=== PATIENT | male | born 1935 | race Caucasian/White ===

== ENCOUNTER 2019-08-01 17:14 | Inpatient (IN) ==
[2019-08-01 18:02] LABS: Basophils % 0.5 % (0.0-0.8); Eosinophils # 0.2 10*3/uL (0.0-0.87); Eosinophils % 3.7 % (0.00-10.9); Hemoglobin 14.6 GM/DL (14.0-18.0); Immature Granulocytes % 0.7 %; Immature Granulocytes Absolute 0.04 #; Lymphocytes # 1.6 10*3/uL (1.4-4.0); Lymphocytes % 26.9 % (21.2-54.2); Mean Corpuscular HGB Conc 32.4 GM/DL (32-36); Mean Corpuscular Volume 97.6 FL (87-102); Mean Platelet Volume 8.9 FL (9.6-12.0); Monocytes % 9.2 % (1.7-12.7); Platelet Count 205 T/CUMM (130-400); Red Blood Count 4.61 MC/CUMM (3.8-5.5); Red Cell Distribution Width 13.6 % (9.3-17.3); White Blood Count 5.9 T/CUMM (4-12)
[2019-08-01] MEDS ORDERED: ASPIRIN 325 MG TABLET PO STA (18:06)
[2019-08-01] MEDS ORDERED: SODIUM CHLORIDE 0.9% 1,000 ML IV STA (18:06)
[2019-08-01 18:11] LABS: PT Patient Result 10.8 SECS (9.6-12.2)
[2019-08-01 18:21] LABS: Alanine Aminotransferase 39 U/L (16-61); Albumin 4.1 G/DL (3.4-5.0); Alkaline Phosphatase 71 U/L (45-117); Aspartate Amino Transferase 27 U/L (0-37); Bilirubin,Total < 0.39 MG/DL (0.2-1.0); Blood Urea Nitrogen 24 MG/DL (7-18); Calcium 9.2 MG/DL (8.5-10.1); Estimated Glom Filtration Rate 77 ML/MIN; Glucose 131 MG/DL (74-106); Osmolality,Calculated 284.4 MOS/KG (273-304)
[2019-08-01] MEDS ORDERED: LORazepam 2 MG/1 ML VIAL ONE (18:24)
[2019-08-01] MEDS ORDERED: LORazepam 2 MG/1 ML VIAL IV STA (18:26)
[2019-08-01] MEDS ORDERED: ONDANSETRON 4 MG/2 ML VIAL IV ONE (18:26)
[2019-08-01] MEDS ORDERED: ONDANSETRON 4 MG/2 ML VIAL ONE (18:26)
[2019-08-01] MEDS ORDERED: FOSPHENYTOIN 1,000 MG.PE in SODIUM CHLORIDE 0.9% 250 ML IV STA (18:26)
[2019-08-01] MEDS ORDERED: FOSPHENYTOIN 500 MG.PE/10 ML VIAL ONE (18:35)
[2019-08-01] MEDS: HEPARIN DRIP 25,000 UNITS/500 ML PREMIX IV SCH (18:47)
[2019-08-01 20:28] LABS: Apearance,Urine CLEAR (Clear); Bacteria,Urine Occasional /HPF (Few); Bilirubin,Urine Negative (Negative); Blood, Urine Negative (Negative); Glucose,Urine (UA) Negative (Negative); Hyaline Casts,Urine 1 /LPF (0-3); Ketones,Urine Negative (Negative); Mucus,Urine Moderate /LPF (Occasional); Nitrite,Urine Negative (Negative); Protein,Urine Negative; RBC,Urine 4 /HPF (0-4); Urine Color Yellow (Yellow); Urine Specific Gravity 1.023 (1.001-1.035); WBC,Urine 1 /HPF (0-6)
[2019-08-01] MEDS ORDERED: GLUCAGON 1 MG VIAL IM PRN (22:17)
[2019-08-01] MEDS ORDERED: DEXTROSE 50% 25 GM/50 ML VIAL IV PRN (22:17)
[2019-08-01] MEDS ORDERED: ACETAMINOPHEN 325 MG TABLET PO PRN (22:17)
[2019-08-01] MEDS ORDERED: MORPHINE 4 MG/1 ML VIAL IV PRN (22:17)
[2019-08-01] MEDS ORDERED: NITROGLYCERIN SL 0.4 MG TABLET SL PRN (22:17)
[2019-08-01] MEDS ORDERED: LORazepam 2 MG/1 ML VIAL IV PRN (22:17)
[2019-08-01] MEDS ORDERED: ONDANSETRON 4 MG/2 ML VIAL IV PRN (22:17)
[2019-08-01 22:53] LABS: Barbiturates Screen,Urine Negative (Negative); Benzodiazepines Screen,Urine Negative (Negative); Cannabinoid Screen,Urine Negative (Negative); Opiate Screen,Urine Negative (Negative); Phencyclidine Screen,Urine Negative (Negative)
[2019-08-01] MEDS ORDERED: ALBUTEROL/IPRATROPIUM 3 ML NEB RESP TX PRN (23:00)
[2019-08-01] MEDS: TAMSULOSIN 0.4 MG CAPSULE PO SCH (23:58)
[2019-08-01] MEDS: FINASTERIDE 5 MG TABLET PO SCH (23:59)
[2019-08-01] MEDS: SIMVASTATIN 40 MG TABLET PO SCH (23:59)
[2019-08-02] MEDS: INSULIN LISPRO 100 UNIT/ML SUBCUT SCH ×4 (00:22→18:31)
[2019-08-02] MEDS: SODIUM CHLORIDE 0.9% 1,000 ML IV SCH ×2 (00:25→18:32)
[2019-08-02 05:47] LABS: Basophils % 0.7 % (0.0-0.8); Eosinophils # 0.2 10*3/uL (0.0-0.87); Eosinophils % 4.1 % (0.00-10.9); Hematocrit 41.4 VOL% (42.0-52.0); Hemoglobin 13.5 GM/DL (14.0-18.0); Immature Granulocytes % 0.5 %; Immature Granulocytes Absolute 0.03 #; Lymphocytes # 1.6 10*3/uL (1.4-4.0); Lymphocytes % 28.1 % (21.2-54.2); Mean Corpuscular HGB Conc 32.6 GM/DL (32-36); Mean Corpuscular Volume 97.4 FL (87-102); Monocytes % 9.7 % (1.7-12.7); Neutrophils % 56.9 % (38.7-73.9); Platelet Count 184 T/CUMM (130-400); Red Blood Count 4.25 MC/CUMM (3.8-5.5); Red Cell Distribution Width 13.7 % (9.3-17.3); White Blood Count 5.6 T/CUMM (4-12)
[2019-08-02 06:18] LABS: Calcium 8.3 MG/DL (8.5-10.1); Osmolality,Calculated 279.5 MOS/KG (273-304); Risk Ratio 3.58; Thyroid Stimulating Hormone 1.76 uIU/ml (0.358-3.74); VLDL CHOLESTEROL 22.4 MG/DL
[2019-08-02] MEDS ORDERED: Umeclidinium-Vilanterol [Anoro Ellipta] 1 PUFF INH SCH (09:00)
[2019-08-02] MEDS: METOPROLOL SUCCINATE XL 25 MG TABLET PO SCH (09:02)
[2019-08-02] MEDS: GLIMEPIRIDE 4 MG TABLET PO SCH (09:03)
[2019-08-02] MEDS: PANTOPRAZOLE 40 MG TABLET PO SCH (09:03)
[2019-08-02] MEDS: ASPIRIN EC 81 MG TABLET PO SCH (09:03)
[2019-08-02] MEDS ORDERED: LORazepam 2 MG/1 ML VIAL IV ONE (11:25)
[2019-08-02] MEDS: PHENYTOIN ER 100 MG CAPSULE PO SCH ×2 (15:52→22:05)
[2019-08-02] MEDS ORDERED: HEPARIN 5,000 UNIT/1 ML VIAL IV ONE (20:58)
[2019-08-02] MEDS: SIMVASTATIN 40 MG TABLET PO SCH (22:05)
[2019-08-02] MEDS: TAMSULOSIN 0.4 MG CAPSULE PO SCH (22:05)
[2019-08-02] MEDS: FINASTERIDE 5 MG TABLET PO SCH (22:06)
[2019-08-02] MEDS: HEPARIN DRIP 25,000 UNITS/500 ML PREMIX IV SCH (23:25)
[2019-08-03] MEDS: INSULIN LISPRO 100 UNIT/ML SUBCUT SCH ×2 (01:24→07:16)
[2019-08-03 05:09] LABS: Basophils % 0.4 % (0.0-0.8); Eosinophils # 0.2 10*3/uL (0.0-0.87); Eosinophils % 3.1 % (0.00-10.9); Hematocrit 42.6 VOL% (42.0-52.0); Hemoglobin 13.7 GM/DL (14.0-18.0); Immature Granulocytes % 0.9 %; Immature Granulocytes Absolute 0.05 #; Lymphocytes # 1.7 10*3/uL (1.4-4.0); Lymphocytes % 31.7 % (21.2-54.2); Mean Corpuscular HGB Conc 32.2 GM/DL (32-36); Mean Corpuscular Volume 97.3 FL (87-102); Mean Platelet Volume 9.1 FL (9.6-12.0); Neutrophils % 53.9 % (38.7-73.9); Platelet Count 197 T/CUMM (130-400); Red Blood Count 4.38 MC/CUMM (3.8-5.5); Red Cell Distribution Width 13.6 % (9.3-17.3); White Blood Count 5.4 T/CUMM (4-12)
[2019-08-03 05:25] LABS: Calcium 8.9 MG/DL (8.5-10.1); Osmolality,Calculated 276.7 MOS/KG (273-304)
[2019-08-03] MEDS: HEPARIN DRIP 25,000 UNITS/500 ML PREMIX IV SCH (06:21)
[2019-08-03] MEDS: METOPROLOL SUCCINATE XL 25 MG TABLET PO SCH (08:14)
[2019-08-03] MEDS: PHENYTOIN ER 100 MG CAPSULE PO SCH (08:14)
[2019-08-03] MEDS: GLIMEPIRIDE 4 MG TABLET PO SCH (08:15)
[2019-08-03] MEDS: PANTOPRAZOLE 40 MG TABLET PO SCH (08:15)
[2019-08-03] MEDS: ASPIRIN EC 81 MG TABLET PO SCH (08:16)
[2019-08-03 08:19] VITALS: BP 152/73
[2019-08-03] MEDS ORDERED: ALBUTEROL/IPRATROPIUM 3 ML NEB RESP TX ONE (09:22)
[2019-08-03] MEDS ORDERED: BUDESONIDE 0.5 MG/2 ML NEB RESP TX ONE (09:22)
[2019-08-03] MEDS ORDERED: APIXABAN 2.5 MG TABLET PO SCH (21:00)
[2019-08-03] MEDS ORDERED: DOCUSATE SODIUM 100 MG CAPSULE PO SCH (21:00)
[2019-08-03] MEDS ORDERED: CITALOPRAM 20 MG TABLET PO SCH (21:00)
[2019-08-04] MEDS ORDERED: MONTELUKAST 10 MG TABLET PO SCH (09:00)
[2019-08-04] MEDS ORDERED: CETIRIZINE 10 MG TABLET PO SCH (09:00)
== END 2019-08-03 10:38 | disposition home health service (06) | DRG 101 ==
LOC: N.ED 17:14 → N.EDINP 19:49 → N.TELES 20:07
PROVIDERS: ADMIT Family Medicine; ATTEND Family Medicine

== ENCOUNTER 2020-08-23 20:11 | Observation (INO) ==
[2020-08-23] MEDS ORDERED: ASPIRIN 325 MG TABLET PO STA ×2 (20:24→20:46)
[2020-08-23] MEDS ORDERED: FUROSEMIDE 40 MG/4 ML VIAL IV STA (20:46)
[2020-08-23] MEDS ORDERED: MORPHINE 4 MG/1 ML VIAL IV STA (20:46)
[2020-08-23] MEDS ORDERED: ALBUTEROL/IPRATROPIUM 3 ML NEB RESP TX STA (20:46)
[2020-08-23] MEDS ORDERED: ONDANSETRON 4 MG/2 ML VIAL IV STA (20:46)
[2020-08-23] MEDS ORDERED: NITROGLYCERIN 2% OINT 1 INCH/GM PACK TOP STA (20:46)
[2020-08-23 20:56] LABS: Basophils % 0.2 % (0.0-0.8); Hematocrit 42.4 VOL% (42.0-52.0); Hemoglobin 14.2 GM/DL (14.0-18.0); Immature Granulocytes % 1.4 %; Immature Granulocytes Absolute 0.12 #; Lymphocytes # 0.5 10*3/uL (1.4-4.0); Lymphocytes % 5.6 % (21.2-54.2); Mean Corpuscular HGB Conc 33.5 GM/DL (32-36); Mean Corpuscular Volume 97.5 FL (87-102); Mean Platelet Volume 9.1 FL (9.6-12.0); Monocytes % 3.7 % (1.7-12.7); Neutrophils % 89.1 % (38.7-73.9); Platelet Count 192 T/CUMM (130-400); Red Blood Count 4.35 MC/CUMM (3.8-5.5); Red Cell Distribution Width 13.4 % (9.3-17.3); White Blood Count 8.4 T/CUMM (4-12)
[2020-08-23 21:00] LABS: Bilirubin,Urine Negative (Negative); Blood, Urine Negative (Negative); Glucose,Urine (UA) >=500 mg/dL (Negative); Ketones,Urine 5 mg/dL (Negative); Nitrite,Urine Negative (Negative); Protein,Urine 30 MG/DL; RBC,Urine 2 /HPF (0-4); Urine Appearance CLEAR (Clear); Urine Color Straw (Yellow); Urine Specific Gravity 1.022 (1.001-1.035); Urine Urobilinogen < 2.0 EU/DL (0.2-1.0); WBC,Urine <1 /HPF (0-6)
[2020-08-23 21:03] LABS: PT Patient Result 11.1 SECS (9.8-11.9)
[2020-08-23 21:29] LABS: Albumin 3.9 G/DL (3.4-5.0); Bilirubin,Total 0.5 MG/DL (0.2-1.0); Calcium 9.1 MG/DL (8.5-10.1); Osmolality,Calculated 283.4 MOS/KG (273-304); Potassium 4.4 MMOL/L (3.5-5.1); Total Protein 8.1 G/DL (6.4-8.3)
[2020-08-23] MEDS ORDERED: INSULIN REGULAR 100 UNIT/ML SUBCUT STA (21:50)
[2020-08-23] MEDS ORDERED: LABETALOL 20 MG/4 ML SYRINGE IV PRN (22:28)
[2020-08-23] MEDS ORDERED: GLUCAGON 1 MG VIAL IM PRN ×2 (22:29)
[2020-08-23] MEDS ORDERED: ALBUTEROL 2.5 MG/3 ML NEB RESP TX PRN (22:29)
[2020-08-23] MEDS ORDERED: PROMETHAZINE 25 MG TABLET PO PRN (22:29)
[2020-08-23] MEDS ORDERED: CALCIUM CARBONATE CHEW 500 MG TABLET PO PRN (22:29)
[2020-08-23] MEDS ORDERED: BISACODYL 5 MG TABLET PO PRN (22:29)
[2020-08-23] MEDS ORDERED: ACETAMINOPHEN 325 MG TABLET PO PRN (22:29)
[2020-08-23] MEDS ORDERED: SIMETHICONE CHEW 125 MG TABLET PO PRN (22:29)
[2020-08-23] MEDS ORDERED: DEXTROSE 50% 25 GM/50 ML VIAL IV PRN ×2 (22:29)
[2020-08-23] MEDS ORDERED: ONDANSETRON 4 MG/2 ML VIAL IV PRN (22:29)
[2020-08-23] MEDS ORDERED: MORPHINE 4 MG/1 ML VIAL IV PRN (22:29)
[2020-08-24] MEDS: ALBUTEROL/IPRATROPIUM 3 ML NEB RESP TX SCH ×2 (00:35→08:04)
[2020-08-24] MEDS ORDERED: ALBUTEROL/IPRATROPIUM 3 ML NEB RESP TX PRN (03:00)
[2020-08-24 05:57] LABS: Basophils % 0.2 % (0.0-0.8); Eosinophils % 0.2 % (0.00-10.9); Hematocrit 40.9 VOL% (42.0-52.0); Hemoglobin 13.6 GM/DL (14.0-18.0); Immature Granulocytes % 0.9 %; Immature Granulocytes Absolute 0.08 #; Lymphocytes # 1.5 10*3/uL (1.4-4.0); Lymphocytes % 17.2 % (21.2-54.2); Mean Corpuscular HGB Conc 33.3 GM/DL (32-36); Mean Corpuscular Volume 96.9 FL (87-102); Mean Platelet Volume 9.3 FL (9.6-12.0); Monocytes % 8.4 % (1.7-12.7); Neutrophils % 73.1 % (38.7-73.9); Platelet Count 202 T/CUMM (130-400); Red Blood Count 4.22 MC/CUMM (3.8-5.5); Red Cell Distribution Width 13.5 % (9.3-17.3); White Blood Count 8.4 T/CUMM (4-12)
[2020-08-24] MEDS ORDERED: FUROSEMIDE 40 MG/4 ML VIAL IV SCH (06:00)
[2020-08-24 06:15] LABS: Potassium 3.8 MMOL/L (3.5-5.1)
[2020-08-24] MEDS ORDERED: FINASTERIDE 5 MG TABLET PO SCH (09:00)
[2020-08-24] MEDS ORDERED: ASPIRIN EC 81 MG TABLET PO SCH (09:00)
[2020-08-24] MEDS ORDERED: PANTOPRAZOLE 40 MG TABLET PO SCH (09:00)
[2020-08-24] MEDS ORDERED: MONTELUKAST 10 MG TABLET PO SCH (09:00)
[2020-08-24] MEDS ORDERED: CETIRIZINE 10 MG TABLET PO SCH (09:00)
[2020-08-24] MEDS ORDERED: NON-FORMULARY MEDICATION (Omeprazole 20 MG capsule,delayed release(DR/EC)) PO SCH (09:00)
[2020-08-24] MEDS ORDERED: METOPROLOL SUCCINATE XL 25 MG TABLET PO SCH (09:00)
[2020-08-24] MEDS ORDERED: APIXABAN 2.5 MG TABLET PO SCH (09:00)
[2020-08-24] MEDS: INSULIN LISPRO 100 UNIT/ML SUBCUT SCH ×2 (09:09→12:44)
[2020-08-24] MEDS: lisinopriL 5 MG TABLET PO SCH ×2 (09:10→09:27)
[2020-08-24] MEDS: PHENYTOIN ER 100 MG CAPSULE PO SCH ×2 (09:10→09:25)
[2020-08-24 12:14] VITALS: BP 144/69
[2020-08-24] MEDS ORDERED: SIMVASTATIN 40 MG TABLET PO SCH (21:00)
[2020-08-24] MEDS ORDERED: DOCUSATE SODIUM 100 MG CAPSULE PO SCH (21:00)
[2020-08-24] MEDS ORDERED: CITALOPRAM 20 MG TABLET PO SCH (21:00)
[2020-08-24] MEDS ORDERED: TAMSULOSIN 0.4 MG CAPSULE PO SCH (21:00)
== END 2020-08-24 14:45 | disposition home or self-care (01) ==
LOC: N.EDINP 20:11 → N.ED 20:11 → N.TELEN 23:18
PROVIDERS: ADMIT Internal Medicine; ATTEND Internal Medicine

== ENCOUNTER 2021-10-28 08:08 | Inpatient (IN) ==
[2021-10-28 09:18] LABS: Hematocrit 36.6 VOL% (42.0-52.0); Hemoglobin 11.9 GM/DL (14.0-18.0); Immature Granulocytes % 1.3 %; Immature Granulocytes Absolute 0.05 #; Lymphocytes # 0.7 10*3/uL (1.4-4.0); Lymphocytes % 18.3 % (21.2-54.2); Mean Corpuscular HGB Conc 32.5 GM/DL (32-36); Mean Corpuscular Volume 98.4 FL (87-102); Mean Platelet Volume 9.2 FL (9.6-12.0); Monocytes % 10.3 % (1.7-12.7); Neutrophils % 70.1 % (38.7-73.9); Platelet Count 139 T/CUMM (130-400); Red Blood Count 3.72 MC/CUMM (3.8-5.5); Red Cell Distribution Width 14.1 % (9.3-17.3); White Blood Count 3.8 T/CUMM (4-12)
[2021-10-28 09:31] LABS: INR 1.1; Partial Thromboplastin Time 33.6 SECS (23.8-32.1)
[2021-10-28 09:34] LABS: Calcium 8.2 MG/DL (8.5-10.1); Osmolality,Calculated 270.7 MOS/KG (273-304)
[2021-10-28 10:12] LABS: Bilirubin,Urine Negative (Negative); Blood, Urine Moderate mg/dL (Negative); Glucose,Urine (UA) 50 mg/dL (Negative); Ketones,Urine 5 mg/dL (Negative); Nitrite,Urine Negative (Negative); Protein,Urine 30 MG/DL; RBC,Urine 22 /HPF (0-4); Urine Appearance CLEAR (Clear); Urine Color Yellow (Yellow); Urine Specific Gravity 1.019 (1.001-1.035); Urine Urobilinogen < 2.0 EU/DL (<2.0)
[2021-10-28] MEDS ORDERED: GLUCAGON 1 MG VIAL IM PRN (11:24)
[2021-10-28] MEDS ORDERED: hydrALAZINE 20 MG/1 ML VIAL IV PRN (11:24)
[2021-10-28] MEDS ORDERED: LACTATED RINGERS 1,000 ML IV SCH (11:30)
[2021-10-28] MEDS ORDERED: DEXTROSE 10% 25 GM/250 ML BAG IV PRN (11:30)
[2021-10-28] MEDS ORDERED: ALBUTEROL/IPRATROPIUM 3 ML NEB RESP TX PRN (11:43)
[2021-10-28 11:53] LABS: Thyroid Stimulating Hormone 1.62 uIU/ml (0.358-3.74)
[2021-10-28] MEDS ORDERED: ENOXAPARIN 40 MG/0.4 ML SYRINGE SUBCUT SCH (12:00)
[2021-10-28] MEDS ORDERED: SODIUM CHLORIDE 0.9% 1,000 ML IV SCH (12:00)
[2021-10-28] MEDS: ALBUTEROL/IPRATROPIUM 3 ML NEB RESP TX SCH ×2 (12:15→19:49)
[2021-10-28] MEDS ORDERED: MAGNESIUM SULF RIDER 2 GM/50 ML PREMIX IV ONE (13:12)
[2021-10-28] MEDS: ONDANSETRON 4 MG/2 ML VIAL IV PRN ×2 (14:15→18:22)
[2021-10-28] MEDS: ACETAMINOPHEN 325 MG TABLET PO PRN (15:50)
[2021-10-28] MEDS: INSULIN LISPRO 100 UNIT/ML SUBCUT SCH ×2 (17:33→21:33)
[2021-10-28] MEDS: ERGOCALCIFEROL 50,000 UNIT CAPSULE PO SCH (18:26)
[2021-10-28] MEDS: MONTELUKAST CHEW 5 MG TABLET PO SCH (21:16)
[2021-10-28] MEDS: APIXABAN 2.5 MG TABLET PO SCH (21:18)
[2021-10-28] MEDS: DOCUSATE SODIUM 100 MG CAPSULE PO SCH (21:18)
[2021-10-28] MEDS: SIMVASTATIN 40 MG TABLET PO SCH (21:18)
[2021-10-28] MEDS: TAMSULOSIN 0.4 MG CAPSULE PO SCH (21:18)
[2021-10-29] MEDS: ALBUTEROL/IPRATROPIUM 3 ML NEB RESP TX SCH ×4 (00:40→20:46)
[2021-10-29] MEDS ORDERED: MELATONIN 3 MG TABLET PO PRN (01:59)
[2021-10-29 04:33] LABS: Basophils % 0.2 % (0.0-0.8); Eosinophils % 0.2 % (0.00-10.9); Hematocrit 35.8 VOL% (42.0-52.0); Hemoglobin 11.8 GM/DL (14.0-18.0); Immature Granulocytes % 0.7 %; Immature Granulocytes Absolute 0.03 #; Mean Corpuscular Volume 98.6 FL (87-102); Mean Platelet Volume 9.1 FL (9.6-12.0); Monocytes % 10.7 % (1.7-12.7); Neutrophils % 66.2 % (38.7-73.9); Platelet Count 159 T/CUMM (130-400); Red Blood Count 3.63 MC/CUMM (3.8-5.5); White Blood Count 4.3 T/CUMM (4-12)
[2021-10-29 04:51] LABS: Calcium 8.5 MG/DL (8.5-10.1); Osmolality,Calculated 266.5 MOS/KG (273-304); Potassium 4.2 MMOL/L (3.5-5.1)
[2021-10-29] MEDS: INSULIN LISPRO 100 UNIT/ML SUBCUT SCH ×5 (08:45→22:29)
[2021-10-29] MEDS: DOCUSATE SODIUM 100 MG CAPSULE PO SCH ×2 (10:15→22:06)
[2021-10-29] MEDS: CETIRIZINE 10 MG TABLET PO SCH (10:15)
[2021-10-29] MEDS: PANTOPRAZOLE 40 MG TABLET PO SCH (10:15)
[2021-10-29] MEDS: ASPIRIN EC 81 MG TABLET PO SCH (10:15)
[2021-10-29] MEDS: APIXABAN 2.5 MG TABLET PO SCH ×2 (10:15→22:05)
[2021-10-29] MEDS: METOPROLOL SUCCINATE XL 25 MG TABLET PO SCH (10:15)
[2021-10-29] MEDS ORDERED: LORazepam 2 MG/1 ML VIAL IV PRN (12:59)
[2021-10-29] MEDS ORDERED: AZITHROMYCIN 250 MG TABLET PO ONE (14:44)
[2021-10-29 17:23] LABS: Albumin 3.2 G/DL (3.4-5.0); Bilirubin,Total 0.7 MG/DL (0.20-1.00); Osmolality,Calculated 269.5 MOS/KG (273-304); Potassium 4.3 MMOL/L (3.5-5.1); Total Protein 6.7 G/DL (6.4-8.2)
[2021-10-29] MEDS ORDERED: REMDESIVIR 100 MG in SODIUM CHLORIDE 0.9% 100 ML IV SCH (17:45)
[2021-10-29] MEDS ORDERED: REMDESIVIR 200 MG in SODIUM CHLORIDE 0.9% 210 ML IV ONE (20:00)
[2021-10-29] MEDS ORDERED: ALBUTEROL INHALER 18 GM INH PRN (20:30)
[2021-10-29] MEDS: ASCORBIC ACID 500 MG TABLET PO SCH (22:05)
[2021-10-29] MEDS: SIMVASTATIN 40 MG TABLET PO SCH (22:06)
[2021-10-29] MEDS: TAMSULOSIN 0.4 MG CAPSULE PO SCH (22:06)
[2021-10-29] MEDS: MONTELUKAST CHEW 5 MG TABLET PO SCH (22:06)
[2021-10-30] MEDS: ALBUTEROL INHALER 18 GM INH SCH ×4 (01:14→21:43)
[2021-10-30 05:42] LABS: Basophils % 0.2 % (0.0-0.8); Hematocrit 35.8 VOL% (42.0-52.0); Hemoglobin 11.8 GM/DL (14.0-18.0); Immature Granulocytes % 0.9 %; Immature Granulocytes Absolute 0.04 #; Lymphocytes # 0.8 10*3/uL (1.4-4.0); Mean Corpuscular Volume 98.9 FL (87-102); Mean Platelet Volume 9.2 FL (9.6-12.0); Monocytes % 10.8 % (1.7-12.7); Neutrophils % 71.1 % (38.7-73.9); Platelet Count 134 T/CUMM (130-400); Red Blood Count 3.62 MC/CUMM (3.8-5.5); Red Cell Distribution Width 14.1 % (9.3-17.3); White Blood Count 4.5 T/CUMM (4-12)
[2021-10-30 06:23] LABS: Albumin 3.1 G/DL (3.4-5.0); Bilirubin,Total 0.8 MG/DL (0.20-1.00); Calcium 7.9 MG/DL (8.5-10.1); Osmolality,Calculated 274.1 MOS/KG (273-304); Potassium 4.3 MMOL/L (3.5-5.1); Total Protein 6.6 G/DL (6.4-8.2)
[2021-10-30] MEDS: INSULIN LISPRO 100 UNIT/ML SUBCUT SCH ×4 (08:37→21:43)
[2021-10-30] MEDS: ZINC GLUCONATE 50 MG TABLET PO SCH (08:37)
[2021-10-30] MEDS: METOPROLOL SUCCINATE XL 25 MG TABLET PO SCH (08:37)
[2021-10-30] MEDS: ASCORBIC ACID 500 MG TABLET PO SCH ×2 (08:37→21:43)
[2021-10-30] MEDS: ASPIRIN EC 81 MG TABLET PO SCH (08:37)
[2021-10-30] MEDS: APIXABAN 2.5 MG TABLET PO SCH ×2 (08:37→21:43)
[2021-10-30] MEDS: CETIRIZINE 10 MG TABLET PO SCH (08:37)
[2021-10-30] MEDS: DOCUSATE SODIUM 100 MG CAPSULE PO SCH ×2 (08:37→21:43)
[2021-10-30] MEDS: DEXAMETHASONE 4 MG TABLET PO SCH (08:37)
[2021-10-30] MEDS: PANTOPRAZOLE 40 MG TABLET PO SCH (08:37)
[2021-10-30] MEDS: AZITHROMYCIN 250 MG TABLET PO SCH (08:37)
[2021-10-30] MEDS ORDERED: TUBERCULIN SKIN TEST 0.1 ML SYRINGE INTRADERM ONE (09:30)
[2021-10-30] MEDS: REMDESIVIR 100 MG in SODIUM CHLORIDE 0.9% 100 ML IV SCH (09:58)
[2021-10-30] MEDS: ZALEPLON 5 MG CAPSULE PO PRN (21:43)
[2021-10-30] MEDS: SIMVASTATIN 40 MG TABLET PO SCH (21:43)
[2021-10-30] MEDS: TAMSULOSIN 0.4 MG CAPSULE PO SCH (21:43)
[2021-10-30] MEDS: MONTELUKAST CHEW 5 MG TABLET PO SCH (21:43)
[2021-10-31] MEDS: ALBUTEROL INHALER 18 GM INH SCH ×4 (01:47→22:37)
[2021-10-31] MEDS: INSULIN LISPRO 100 UNIT/ML SUBCUT SCH ×4 (07:27→22:37)
[2021-10-31] MEDS: ZINC GLUCONATE 50 MG TABLET PO SCH (08:35)
[2021-10-31] MEDS: CETIRIZINE 10 MG TABLET PO SCH (08:35)
[2021-10-31] MEDS: APIXABAN 2.5 MG TABLET PO SCH ×2 (08:37→22:36)
[2021-10-31] MEDS: DOCUSATE SODIUM 100 MG CAPSULE PO SCH ×2 (08:37→22:36)
[2021-10-31] MEDS: DEXAMETHASONE 4 MG TABLET PO SCH (08:37)
[2021-10-31] MEDS: PANTOPRAZOLE 40 MG TABLET PO SCH (08:39)
[2021-10-31] MEDS: METOPROLOL SUCCINATE XL 25 MG TABLET PO SCH (08:42)
[2021-10-31] MEDS: AZITHROMYCIN 250 MG TABLET PO SCH (09:14)
[2021-10-31] MEDS: ASPIRIN EC 81 MG TABLET PO SCH (09:28)
[2021-10-31] MEDS: ASCORBIC ACID 500 MG TABLET PO SCH ×2 (10:13→22:36)
[2021-10-31] MEDS: REMDESIVIR 100 MG in SODIUM CHLORIDE 0.9% 100 ML IV SCH (16:43)
[2021-10-31] MEDS: ZALEPLON 5 MG CAPSULE PO PRN (22:36)
[2021-10-31] MEDS: MONTELUKAST CHEW 5 MG TABLET PO SCH (22:36)
[2021-10-31] MEDS: CITALOPRAM 20 MG TABLET PO SCH (22:36)
[2021-10-31] MEDS: TAMSULOSIN 0.4 MG CAPSULE PO SCH (22:36)
[2021-10-31] MEDS: SIMVASTATIN 40 MG TABLET PO SCH (22:39)
[2021-10-31] MEDS: BUDESONIDE/FORMOTEROL 160-4.5 INHALER 6 GM INH SCH (22:39)
[2021-11-01] MEDS: ACETAMINOPHEN 325 MG TABLET PO PRN ×2 (01:15→09:15)
[2021-11-01] MEDS: ALBUTEROL INHALER 18 GM INH SCH ×4 (01:15→18:09)
[2021-11-01 04:50] LABS: Eosinophils % 0.2 % (0.00-10.9); Hematocrit 36.4 VOL% (42.0-52.0); Hemoglobin 11.7 GM/DL (14.0-18.0); Immature Granulocytes % 0.9 %; Immature Granulocytes Absolute 0.04 #; Lymphocytes % 21.4 % (21.2-54.2); Mean Corpuscular HGB Conc 32.1 GM/DL (32-36); Mean Corpuscular Volume 100.8 FL (87-102); Mean Platelet Volume 9.4 FL (9.6-12.0); Monocytes % 9.8 % (1.7-12.7); Neutrophils % 67.7 % (38.7-73.9); Platelet Count 149 T/CUMM (130-400); Red Blood Count 3.61 MC/CUMM (3.8-5.5); Red Cell Distribution Width 13.8 % (9.3-17.3); White Blood Count 4.6 T/CUMM (4-12)
[2021-11-01 05:15] LABS: Albumin 2.7 G/DL (3.4-5.0); Bilirubin,Total 0.5 MG/DL (0.20-1.00); Calcium 8.6 MG/DL (8.5-10.1); Osmolality,Calculated 278.1 MOS/KG (273-304); Potassium 3.8 MMOL/L (3.5-5.1); Total Protein 6.7 G/DL (6.4-8.2)
[2021-11-01 05:29] LABS: Ferritin 658.7 ng/mL (26-388)
[2021-11-01] MEDS: INSULIN LISPRO 100 UNIT/ML SUBCUT SCH ×4 (08:22→21:51)
[2021-11-01] MEDS: FINASTERIDE 5 MG TABLET PO SCH (09:08)
[2021-11-01] MEDS: ASCORBIC ACID 500 MG TABLET PO SCH ×2 (09:08→21:52)
[2021-11-01] MEDS: ZINC GLUCONATE 50 MG TABLET PO SCH (09:08)
[2021-11-01] MEDS: REMDESIVIR 100 MG in SODIUM CHLORIDE 0.9% 100 ML IV SCH (09:08)
[2021-11-01] MEDS: DOCUSATE SODIUM 100 MG CAPSULE PO SCH ×2 (09:08→21:52)
[2021-11-01] MEDS: PANTOPRAZOLE 40 MG TABLET PO SCH (09:08)
[2021-11-01] MEDS: DEXAMETHASONE 4 MG TABLET PO SCH (09:08)
[2021-11-01] MEDS: METOPROLOL SUCCINATE XL 25 MG TABLET PO SCH (09:08)
[2021-11-01] MEDS: CETIRIZINE 10 MG TABLET PO SCH (09:08)
[2021-11-01] MEDS: APIXABAN 2.5 MG TABLET PO SCH ×2 (09:08→21:53)
[2021-11-01] MEDS: BUDESONIDE/FORMOTEROL 160-4.5 INHALER 6 GM INH SCH ×2 (09:14→21:53)
[2021-11-01] MEDS: DESITIN 4OZ/NYSTATIN 15 GRAM MIXTURE PASTE TOP SCH ×2 (09:14→21:53)
[2021-11-01] MEDS: ASPIRIN EC 81 MG TABLET PO SCH (12:15)
[2021-11-01] MEDS: MONTELUKAST CHEW 5 MG TABLET PO SCH (21:52)
[2021-11-01] MEDS: ZALEPLON 5 MG CAPSULE PO PRN (21:52)
[2021-11-01] MEDS: SIMVASTATIN 40 MG TABLET PO SCH (21:52)
[2021-11-01] MEDS: CITALOPRAM 20 MG TABLET PO SCH (21:53)
[2021-11-01] MEDS: TAMSULOSIN 0.4 MG CAPSULE PO SCH (21:53)
[2021-11-02] MEDS: ALBUTEROL INHALER 18 GM INH SCH ×4 (01:08→18:02)
[2021-11-02 06:52] LABS: Basophils % 0.3 % (0.0-0.8); Hematocrit 33.6 VOL% (42.0-52.0); Hemoglobin 11.2 GM/DL (14.0-18.0); Immature Granulocytes % 0.8 %; Immature Granulocytes Absolute 0.03 #; Lymphocytes # 0.9 10*3/uL (1.4-4.0); Lymphocytes % 23.4 % (21.2-54.2); Mean Corpuscular HGB Conc 33.3 GM/DL (32-36); Mean Corpuscular Volume 97.7 FL (87-102); Mean Platelet Volume 9.3 FL (9.6-12.0); Neutrophils % 65.5 % (38.7-73.9); Platelet Count 168 T/CUMM (130-400); Red Blood Count 3.44 MC/CUMM (3.8-5.5); Red Cell Distribution Width 13.7 % (9.3-17.3); White Blood Count 3.8 T/CUMM (4-12)
[2021-11-02 07:12] LABS: Albumin 2.9 G/DL (3.4-5.0); Bilirubin,Total 1.3 MG/DL (0.20-1.00); Calcium 8.5 MG/DL (8.5-10.1); Osmolality,Calculated 274.1 MOS/KG (273-304); Potassium 3.9 MMOL/L (3.5-5.1); Total Protein 7.1 G/DL (6.4-8.2)
[2021-11-02 07:20] LABS: Ferritin 530.9 ng/mL (26-388)
[2021-11-02] MEDS: INSULIN LISPRO 100 UNIT/ML SUBCUT SCH ×4 (08:21→21:45)
[2021-11-02 08:49] LABS: Platelet Estimate Normal
[2021-11-02 08:50] LABS: Anisocytosis 1+; Burr Cells Few; Ovalocytes Few
[2021-11-02] MEDS: CETIRIZINE 10 MG TABLET PO SCH (09:14)
[2021-11-02] MEDS: ASCORBIC ACID 500 MG TABLET PO SCH ×2 (09:14→20:42)
[2021-11-02] MEDS: ZINC GLUCONATE 50 MG TABLET PO SCH (09:14)
[2021-11-02] MEDS: REMDESIVIR 100 MG in SODIUM CHLORIDE 0.9% 100 ML IV SCH (09:15)
[2021-11-02] MEDS: FINASTERIDE 5 MG TABLET PO SCH (10:21)
[2021-11-02] MEDS: METOPROLOL SUCCINATE XL 25 MG TABLET PO SCH (10:21)
[2021-11-02] MEDS: DOCUSATE SODIUM 100 MG CAPSULE PO SCH ×2 (10:21→20:41)
[2021-11-02] MEDS: DEXAMETHASONE 4 MG TABLET PO SCH (10:24)
[2021-11-02] MEDS: ASPIRIN EC 81 MG TABLET PO SCH (10:24)
[2021-11-02] MEDS: PANTOPRAZOLE 40 MG TABLET PO SCH (10:25)
[2021-11-02] MEDS: APIXABAN 2.5 MG TABLET PO SCH ×2 (10:25→20:41)
[2021-11-02] MEDS: BUDESONIDE/FORMOTEROL 160-4.5 INHALER 6 GM INH SCH ×2 (10:26→20:42)
[2021-11-02] MEDS: DESITIN 4OZ/NYSTATIN 15 GRAM MIXTURE PASTE TOP SCH ×2 (10:28→20:42)
[2021-11-02] MEDS: guaiFENesin/CODEINE 5 ML LIQUID PO SCH ×2 (15:49→20:42)
[2021-11-02] MEDS: CITALOPRAM 20 MG TABLET PO SCH (20:41)
[2021-11-02] MEDS: ZALEPLON 5 MG CAPSULE PO PRN (20:42)
[2021-11-02] MEDS: TAMSULOSIN 0.4 MG CAPSULE PO SCH (20:42)
[2021-11-02] MEDS: SIMVASTATIN 40 MG TABLET PO SCH (20:42)
[2021-11-02] MEDS: MONTELUKAST CHEW 5 MG TABLET PO SCH (20:42)
[2021-11-03] MEDS: ALBUTEROL INHALER 18 GM INH SCH ×3 (00:54→22:00)
[2021-11-03 06:33] LABS: Basophils % 0.3 % (0.0-0.8); Hematocrit 35.2 VOL% (42.0-52.0); Hemoglobin 11.5 GM/DL (14.0-18.0); Immature Granulocytes % 0.6 %; Immature Granulocytes Absolute 0.02 #; Lymphocytes # 0.8 10*3/uL (1.4-4.0); Lymphocytes % 22.7 % (21.2-54.2); Mean Corpuscular HGB Conc 32.7 GM/DL (32-36); Mean Corpuscular Volume 98.6 FL (87-102); Mean Platelet Volume 9.3 FL (9.6-12.0); Monocytes % 9.5 % (1.7-12.7); Neutrophils % 66.9 % (38.7-73.9); Platelet Count 198 T/CUMM (130-400); Red Blood Count 3.57 MC/CUMM (3.8-5.5); Red Cell Distribution Width 13.5 % (9.3-17.3); White Blood Count 3.6 T/CUMM (4-12)
[2021-11-03 06:59] LABS: Albumin 2.9 G/DL (3.4-5.0); Bilirubin,Total 0.6 MG/DL (0.20-1.00); Osmolality,Calculated 274.2 MOS/KG (273-304); Potassium 3.8 MMOL/L (3.5-5.1); Total Protein 7.3 G/DL (6.4-8.2)
[2021-11-03 07:03] LABS: Ferritin 541.1 ng/mL (26-388)
[2021-11-03] MEDS: CETIRIZINE 10 MG TABLET PO SCH (09:40)
[2021-11-03] MEDS: ASPIRIN EC 81 MG TABLET PO SCH (09:40)
[2021-11-03] MEDS: BUDESONIDE/FORMOTEROL 160-4.5 INHALER 6 GM INH SCH ×2 (09:40→21:30)
[2021-11-03] MEDS: ZINC GLUCONATE 50 MG TABLET PO SCH (09:40)
[2021-11-03] MEDS: METOPROLOL SUCCINATE XL 25 MG TABLET PO SCH (09:40)
[2021-11-03] MEDS: DOCUSATE SODIUM 100 MG CAPSULE PO SCH ×2 (09:40→21:30)
[2021-11-03] MEDS: INSULIN LISPRO 100 UNIT/ML SUBCUT SCH ×4 (09:40→21:30)
[2021-11-03] MEDS: FINASTERIDE 5 MG TABLET PO SCH (09:40)
[2021-11-03] MEDS: DESITIN 4OZ/NYSTATIN 15 GRAM MIXTURE PASTE TOP SCH ×2 (09:40→21:30)
[2021-11-03] MEDS: APIXABAN 2.5 MG TABLET PO SCH ×2 (09:41→21:30)
[2021-11-03] MEDS: PANTOPRAZOLE 40 MG TABLET PO SCH (09:41)
[2021-11-03] MEDS: DEXAMETHASONE 4 MG TABLET PO SCH (09:41)
[2021-11-03] MEDS: ASCORBIC ACID 500 MG TABLET PO SCH ×2 (09:41→21:30)
[2021-11-03] MEDS: guaiFENesin/CODEINE 5 ML LIQUID PO SCH ×3 (10:16→21:30)
[2021-11-03] MEDS: TAMSULOSIN 0.4 MG CAPSULE PO SCH (21:30)
[2021-11-03] MEDS: MONTELUKAST CHEW 5 MG TABLET PO SCH (21:30)
[2021-11-03] MEDS: SIMVASTATIN 40 MG TABLET PO SCH (21:30)
[2021-11-03] MEDS: CITALOPRAM 20 MG TABLET PO SCH (21:30)
[2021-11-04] MEDS: ALBUTEROL INHALER 18 GM INH SCH ×3 (01:30→21:00)
[2021-11-04 06:09] LABS: Basophils % 0.2 % (0.0-0.8); Eosinophils % 0.2 % (0.00-10.9); Hematocrit 34.4 VOL% (42.0-52.0); Hemoglobin 11.2 GM/DL (14.0-18.0); Immature Granulocytes % 1.3 %; Immature Granulocytes Absolute 0.06 #; Lymphocytes # 1.1 10*3/uL (1.4-4.0); Lymphocytes % 24.8 % (21.2-54.2); Mean Corpuscular HGB Conc 32.6 GM/DL (32-36); Mean Corpuscular Volume 99.1 FL (87-102); Mean Platelet Volume 9.4 FL (9.6-12.0); Monocytes % 9.9 % (1.7-12.7); Neutrophils % 63.6 % (38.7-73.9); Platelet Count 219 T/CUMM (130-400); Red Blood Count 3.47 MC/CUMM (3.8-5.5); Red Cell Distribution Width 13.7 % (9.3-17.3); White Blood Count 4.6 T/CUMM (4-12)
[2021-11-04 06:45] LABS: Albumin 2.9 G/DL (3.4-5.0); Calcium 8.3 MG/DL (8.5-10.1); Osmolality,Calculated 278.1 MOS/KG (273-304); Potassium 3.9 MMOL/L (3.5-5.1); Total Protein 6.9 G/DL (6.4-8.2)
[2021-11-04 07:16] LABS: Ferritin 447.7 ng/mL (26-388)
[2021-11-04] MEDS: ERGOCALCIFEROL 50,000 UNIT CAPSULE PO SCH (08:22)
[2021-11-04] MEDS: APIXABAN 2.5 MG TABLET PO SCH ×2 (08:22→20:00)
[2021-11-04] MEDS: guaiFENesin/CODEINE 5 ML LIQUID PO SCH ×3 (08:22→20:00)
[2021-11-04] MEDS: METOPROLOL SUCCINATE XL 25 MG TABLET PO SCH (08:22)
[2021-11-04] MEDS: INSULIN LISPRO 100 UNIT/ML SUBCUT SCH ×4 (08:22→21:30)
[2021-11-04] MEDS: ASPIRIN EC 81 MG TABLET PO SCH (08:23)
[2021-11-04] MEDS: FINASTERIDE 5 MG TABLET PO SCH (08:23)
[2021-11-04] MEDS: ZINC GLUCONATE 50 MG TABLET PO SCH (08:23)
[2021-11-04] MEDS: DEXAMETHASONE 4 MG TABLET PO SCH (08:23)
[2021-11-04] MEDS: ASCORBIC ACID 500 MG TABLET PO SCH ×2 (08:23→20:00)
[2021-11-04] MEDS: CETIRIZINE 10 MG TABLET PO SCH (08:23)
[2021-11-04] MEDS: DOCUSATE SODIUM 100 MG CAPSULE PO SCH ×2 (08:23→20:00)
[2021-11-04] MEDS: BUDESONIDE/FORMOTEROL 160-4.5 INHALER 6 GM INH SCH ×2 (09:20→20:00)
[2021-11-04] MEDS: DESITIN 4OZ/NYSTATIN 15 GRAM MIXTURE PASTE TOP SCH ×2 (09:20→20:00)
[2021-11-04] MEDS: PANTOPRAZOLE 40 MG TABLET PO SCH (09:20)
[2021-11-04] MEDS ORDERED: FUROSEMIDE 40 MG TABLET PO ONE (13:25)
[2021-11-04] MEDS: TAMSULOSIN 0.4 MG CAPSULE PO SCH (20:00)
[2021-11-04] MEDS: CITALOPRAM 20 MG TABLET PO SCH (20:00)
[2021-11-04] MEDS: MONTELUKAST CHEW 5 MG TABLET PO SCH (20:00)
[2021-11-04] MEDS: SIMVASTATIN 40 MG TABLET PO SCH (20:00)
[2021-11-04 21:52] LABS: Specimen Source SPUTUM
[2021-11-05] MEDS: ALBUTEROL INHALER 18 GM INH SCH ×4 (01:30→21:50)
[2021-11-05 05:22] LABS: Basophils % 0.2 % (0.0-0.8); Eosinophils % 0.2 % (0.00-10.9); Hematocrit 35.6 VOL% (42.0-52.0); Hemoglobin 11.7 GM/DL (14.0-18.0); Immature Granulocytes % 2.6 %; Immature Granulocytes Absolute 0.14 #; Mean Corpuscular HGB Conc 32.9 GM/DL (32-36); Mean Corpuscular Volume 97.3 FL (87-102); Mean Platelet Volume 9.3 FL (9.6-12.0); Monocytes % 10.4 % (1.7-12.7); Neutrophils % 68.6 % (38.7-73.9); Platelet Count 240 T/CUMM (130-400); Red Blood Count 3.66 MC/CUMM (3.8-5.5); Red Cell Distribution Width 13.4 % (9.3-17.3); White Blood Count 5.4 T/CUMM (4-12)
[2021-11-05 06:12] LABS: Ferritin 418.7 ng/mL (26-388)
[2021-11-05 08:06] LABS: Bilirubin,Total 0.8 MG/DL (0.20-1.00); Calcium 8.7 MG/DL (8.5-10.1); Osmolality,Calculated 276.4 MOS/KG (273-304); Total Protein 7.1 G/DL (6.4-8.2)
[2021-11-05] MEDS: ASCORBIC ACID 500 MG TABLET PO SCH ×2 (09:05→21:50)
[2021-11-05] MEDS: DOCUSATE SODIUM 100 MG CAPSULE PO SCH ×2 (09:06→21:50)
[2021-11-05] MEDS: FINASTERIDE 5 MG TABLET PO SCH (09:06)
[2021-11-05] MEDS: CETIRIZINE 10 MG TABLET PO SCH (09:06)
[2021-11-05] MEDS: PANTOPRAZOLE 40 MG TABLET PO SCH (09:06)
[2021-11-05] MEDS: METOPROLOL SUCCINATE XL 25 MG TABLET PO SCH (09:07)
[2021-11-05] MEDS: DEXAMETHASONE 4 MG TABLET PO SCH (09:07)
[2021-11-05] MEDS: APIXABAN 2.5 MG TABLET PO SCH ×2 (09:07→21:50)
[2021-11-05] MEDS: ASPIRIN EC 81 MG TABLET PO SCH (09:07)
[2021-11-05] MEDS: ZINC GLUCONATE 50 MG TABLET PO SCH (09:08)
[2021-11-05] MEDS: guaiFENesin/CODEINE 5 ML LIQUID PO SCH ×3 (09:08→21:50)
[2021-11-05] MEDS: INSULIN LISPRO 100 UNIT/ML SUBCUT SCH ×4 (09:08→21:50)
[2021-11-05] MEDS: BUDESONIDE/FORMOTEROL 160-4.5 INHALER 6 GM INH SCH ×2 (09:12→21:50)
[2021-11-05] MEDS: DESITIN 4OZ/NYSTATIN 15 GRAM MIXTURE PASTE TOP SCH ×2 (12:44→21:50)
[2021-11-05] MEDS: MONTELUKAST CHEW 5 MG TABLET PO SCH (21:50)
[2021-11-05] MEDS: SIMVASTATIN 40 MG TABLET PO SCH (21:50)
[2021-11-05] MEDS: TAMSULOSIN 0.4 MG CAPSULE PO SCH (21:50)
[2021-11-05] MEDS: CITALOPRAM 20 MG TABLET PO SCH (21:50)
[2021-11-06] MEDS: ALBUTEROL INHALER 18 GM INH SCH (01:30)
[2021-11-06 05:50] LABS: Basophils % 0.4 % (0.0-0.8); Eosinophils % 0.4 % (0.00-10.9); Hematocrit 37.5 VOL% (42.0-52.0); Hemoglobin 12.3 GM/DL (14.0-18.0); Immature Granulocytes % 4.7 %; Immature Granulocytes Absolute 0.26 #; Lymphocytes # 1.1 10*3/uL (1.4-4.0); Lymphocytes % 19.1 % (21.2-54.2); Mean Corpuscular HGB Conc 32.8 GM/DL (32-36); Mean Corpuscular Volume 99.2 FL (87-102); Mean Platelet Volume 9.1 FL (9.6-12.0); Monocytes % 10.1 % (1.7-12.7); Neutrophils % 65.3 % (38.7-73.9); Platelet Count 268 T/CUMM (130-400); Red Blood Count 3.78 MC/CUMM (3.8-5.5); Red Cell Distribution Width 13.7 % (9.3-17.3); White Blood Count 5.6 T/CUMM (4-12)
[2021-11-06 05:56] LABS: Albumin 2.9 G/DL (3.4-5.0); Bilirubin,Total 0.5 MG/DL (0.20-1.00); Calcium 8.9 MG/DL (8.5-10.1); Osmolality,Calculated 271.7 MOS/KG (273-304); Potassium 3.9 MMOL/L (3.5-5.1); Total Protein 7.1 G/DL (6.4-8.2)
[2021-11-06 06:08] LABS: Ferritin 353.9 ng/mL (26-388)
[2021-11-06] MEDS: APIXABAN 2.5 MG TABLET PO SCH (10:30)
[2021-11-06] MEDS: DOCUSATE SODIUM 100 MG CAPSULE PO SCH (10:30)
[2021-11-06] MEDS: CETIRIZINE 10 MG TABLET PO SCH (10:30)
[2021-11-06] MEDS: ASCORBIC ACID 500 MG TABLET PO SCH (10:30)
[2021-11-06] MEDS: DEXAMETHASONE 4 MG TABLET PO SCH (10:30)
[2021-11-06] MEDS: BUDESONIDE/FORMOTEROL 160-4.5 INHALER 6 GM INH SCH (10:30)
[2021-11-06] MEDS: INSULIN LISPRO 100 UNIT/ML SUBCUT SCH ×2 (10:30→12:53)
[2021-11-06] MEDS: guaiFENesin/CODEINE 5 ML LIQUID PO SCH (10:30)
[2021-11-06] MEDS: FINASTERIDE 5 MG TABLET PO SCH (10:30)
[2021-11-06] MEDS: DESITIN 4OZ/NYSTATIN 15 GRAM MIXTURE PASTE TOP SCH (10:30)
[2021-11-06] MEDS: PANTOPRAZOLE 40 MG TABLET PO SCH (10:30)
[2021-11-06] MEDS: METOPROLOL SUCCINATE XL 25 MG TABLET PO SCH (10:30)
[2021-11-06] MEDS: ZINC GLUCONATE 50 MG TABLET PO SCH (10:30)
[2021-11-06] MEDS: ASPIRIN EC 81 MG TABLET PO SCH (10:30)
[2021-11-06 12:57] VITALS: BP 128/77
[2021-11-07] MEDS ORDERED: CHOLECALCIFEROL 1,000 UNIT TABLET PO SCH (09:00)
== END 2021-11-06 15:00 | DRG 177 ==
LOC: EDBD → EDUNIT# → N.EDINP 08:08 → N.ED 08:08 → SUATTDRO 10-29 14:47 → N.3E 10-29 16:26
PROVIDERS: ADMIT Internal Medicine; ATTEND Hospitalist

== ENCOUNTER 2022-08-25 20:45 | Inpatient (IN) ==
[2022-08-25 21:51] LABS: Basophils % 0.2 % (0.0-0.8); Eosinophils % 0.4 % (0.00-10.9); Hematocrit 33.2 VOL% (42.0-52.0); Hemoglobin 10.9 GM/DL (14.0-18.0); Immature Granulocytes % 0.8 %; Immature Granulocytes Absolute 0.07 #; Lymphocytes # 0.5 10*3/uL (1.4-4.0); Mean Corpuscular HGB Conc 32.8 GM/DL (32-36); Mean Corpuscular Volume 101.2 FL (87-102); Mean Platelet Volume 9.3 FL (9.6-12.0); Monocytes # 0.6 10*3/uL (0.11-0.8); Monocytes % 6.6 % (1.7-12.7); Platelet Count 188 T/CUMM (130-400); Red Blood Count 3.28 MC/CUMM (3.8-5.5); Red Cell Distribution Width 14.6 % (9.3-17.3); White Blood Count 8.9 T/CUMM (4-12)
[2022-08-25 22:01] LABS: PT Patient Result 11.5 SECS (10.1-12.1)
[2022-08-25 22:04] LABS: Arterial Base Excess iSTAT 2 MMOL/L (-2.5-2.5); Arterial Bicarbonate iSTAT 26.1 MMOL/L (20-26); Arterial O2 Saturation iSTAT 98 % (95-100); Arterial PCO2 iSTAT 39 MM HG (35-48); Arterial PO2 iSTAT 104 MM HG (80-95); Arterial Total CO2 iSTAT 27 MMO/L (23-27); Arterial pH iSTAT 7.431 (7.35-7.45)
[2022-08-25 22:35] LABS: Albumin 3.5 G/DL (3.4-5.0); Bilirubin,Total 0.8 MG/DL (0.20-1.00); Calcium 8.8 MG/DL (8.5-10.1); Osmolality,Calculated 279.2 MOS/KG (273-304); Potassium 4.4 MMOL/L (3.5-5.1); Total Protein 7.7 G/DL (6.4-8.2)
[2022-08-25] MEDS ORDERED: methylPREDNISolone SOD SUC 125 MG/2 ML VIAL IV STA (23:00)
[2022-08-25] MEDS ORDERED: AZITHROMYCIN INJ 500 MG in SODIUM CHLORIDE 0.9% 250 ML IV STA (23:00)
[2022-08-25] MEDS ORDERED: ALBUTEROL/IPRATROPIUM 3 ML NEB RESP TX STA (23:00)
[2022-08-25] MEDS ORDERED: ALBUTEROL 2.5 MG/3 ML NEB RESP TX STA (23:00)
[2022-08-25] MEDS ORDERED: cefTRIAXone 1,000 MG in SODIUM CHLORIDE 0.9% 100 ML IV STA (23:00)
[2022-08-25 23:21] LABS: Urine Appearance Clear (Clear); Urine Color Yellow (Yellow)
[2022-08-25 23:22] LABS: Bilirubin,Urine Negative (Negative); Blood, Urine Moderate mg/dL (Negative); Glucose,Urine (UA) 100 mg/dL (Negative); Ketones,Urine 15 mg/dL (Negative); Nitrite,Urine Negative (Negative); Protein,Urine 100 mg/dL (Negative); Urine Specific Gravity >= 1.030 (1.001-1.035); Urine Urobilinogen 0.2 eU/dL (<2.0)
[2022-08-25] MEDS ORDERED: FUROSEMIDE 40 MG/4 ML VIAL IV STA (23:22)
[2022-08-25 23:23] LABS: Hyaline Casts,Urine 1 /LPF (0-3); Mucus,Urine Occasional /LPF (Occasional); RBC,Urine 34 /HPF (0-4)
[2022-08-25] MEDS ORDERED: ZALEPLON 5 MG CAPSULE PO PRN (23:26)
[2022-08-25] MEDS ORDERED: GLUCAGON 1 MG VIAL IM PRN (23:26)
[2022-08-25] MEDS ORDERED: ONDANSETRON 4 MG/2 ML VIAL IV PRN (23:26)
[2022-08-25] MEDS ORDERED: AZITHROMYCIN INJ 500 MG in SODIUM CHLORIDE 0.9% 250 ML IV SCH (23:30)
[2022-08-25] MEDS ORDERED: MONTELUKAST 10 MG TABLET PO PRN (23:31)
[2022-08-25] MEDS ORDERED: DEXTROSE 10% 250 ML BAG IV PRN (23:36)
[2022-08-25] MEDS ORDERED: DOCUSATE SODIUM 100 MG CAPSULE PO PRN (23:40)
[2022-08-26] MEDS: ALBUTEROL/IPRATROPIUM 3 ML NEB RESP TX SCH ×4 (00:31→19:43)
[2022-08-26 06:27] LABS: Basophils % 0.1 % (0.0-0.8); Hematocrit 34.6 VOL% (42.0-52.0); Hemoglobin 11.2 GM/DL (14.0-18.0); Immature Granulocytes % 0.9 %; Immature Granulocytes Absolute 0.08 #; Lymphocytes # 0.4 10*3/uL (1.4-4.0); Lymphocytes % 3.8 % (21.2-54.2); Mean Corpuscular HGB Conc 32.4 GM/DL (32-36); Mean Corpuscular Volume 102.1 FL (87-102); Mean Platelet Volume 9.6 FL (9.6-12.0); Monocytes # 0.2 10*3/uL (0.11-0.8); Monocytes % 1.9 % (1.7-12.7); Neutrophils % 93.3 % (38.7-73.9); Platelet Count 176 T/CUMM (130-400); Red Blood Count 3.39 MC/CUMM (3.8-5.5); Red Cell Distribution Width 14.5 % (9.3-17.3); White Blood Count 9.4 T/CUMM (4-12)
[2022-08-26 06:47] LABS: Band Neutrophils 1 % (0-10); Lymphocytes 3 % (20-55); Platelet Estimate Adequate; Total Cells Counted 100
[2022-08-26 07:07] LABS: Albumin 3.5 G/DL (3.4-5.0); Bilirubin,Total 0.9 MG/DL (0.20-1.00); Calcium 8.5 MG/DL (8.5-10.1); Osmolality,Calculated 285.2 MOS/KG (273-304); Potassium 4.5 MMOL/L (3.5-5.1)
[2022-08-26] MEDS ORDERED: NON-FORMULARY MEDICATION (Omeprazole 20 MG capsule,delayed release(DR/EC)) PO SCH (09:00)
[2022-08-26] MEDS: INSULIN REGULAR 100 UNIT/ML SUBCUT SCH ×4 (09:23→21:29)
[2022-08-26] MEDS: PANTOPRAZOLE 40 MG TABLET PO SCH (09:28)
[2022-08-26] MEDS: ASPIRIN EC 81 MG TABLET PO SCH (09:28)
[2022-08-26] MEDS: CETIRIZINE 10 MG TABLET PO SCH (09:28)
[2022-08-26] MEDS: APIXABAN 2.5 MG TABLET PO SCH ×2 (09:28→21:28)
[2022-08-26] MEDS: ENOXAPARIN 40 MG/0.4 ML SYRINGE SUBCUT SCH (09:28)
[2022-08-26] MEDS: CHOLECALCIFEROL 1,000 UNIT TABLET PO SCH (09:28)
[2022-08-26] MEDS: FINASTERIDE 5 MG TABLET PO SCH (09:28)
[2022-08-26] MEDS: METOPROLOL SUCCINATE XL 25 MG TABLET PO SCH (09:29)
[2022-08-26] MEDS: methylPREDNISolone SOD SUC 40 MG/1 ML VIAL IV SCH ×2 (09:29→16:37)
[2022-08-26] MEDS: PIPERACILLIN/TAZOBACTAM 3,375 MG in SODIUM CHLORIDE 0.9% 100 ML IV SCH ×2 (09:33→16:38)
[2022-08-26] MEDS: LACTATED RINGERS 1,000 ML IV SCH (14:52)
[2022-08-26] MEDS: NON-FORMULARY MEDICATION (Fluticasone-Umeclidin-Vilanter [Trelegy Ellipta] 100-62.5-25 mcg INH SCH (15:09)
[2022-08-26] MEDS: CITALOPRAM 20 MG TABLET PO SCH (21:28)
[2022-08-26] MEDS: SIMVASTATIN 40 MG TABLET PO SCH (21:28)
[2022-08-26] MEDS: TAMSULOSIN 0.4 MG CAPSULE PO SCH (21:28)
[2022-08-26] MEDS: INSULIN GLARGINE 100 UNIT/ML SUBCUT SCH (21:29)
[2022-08-26] MEDS ORDERED: cefTRIAXone 1,000 MG in SODIUM CHLORIDE 0.9% 100 ML IV SCH (23:00)
[2022-08-27] MEDS: ALBUTEROL/IPRATROPIUM 3 ML NEB RESP TX SCH ×5 (00:42→23:45)
[2022-08-27] MEDS: methylPREDNISolone SOD SUC 40 MG/1 ML VIAL IV SCH ×3 (02:02→17:38)
[2022-08-27] MEDS: PIPERACILLIN/TAZOBACTAM 3,375 MG in SODIUM CHLORIDE 0.9% 100 ML IV SCH ×3 (02:02→17:39)
[2022-08-27 08:17] LABS: Hematocrit 31.9 VOL% (42.0-52.0); Hemoglobin 10.2 GM/DL (14.0-18.0); Immature Granulocytes % 1.1 %; Immature Granulocytes Absolute 0.09 #; Lymphocytes # 0.6 10*3/uL (1.4-4.0); Lymphocytes % 6.7 % (21.2-54.2); Mean Corpuscular Volume 101.9 FL (87-102); Mean Platelet Volume 9.7 FL (9.6-12.0); Monocytes # 0.4 10*3/uL (0.11-0.8); Monocytes % 4.3 % (1.7-12.7); Neutrophils % 87.9 % (38.7-73.9); Platelet Count 184 T/CUMM (130-400); Red Blood Count 3.13 MC/CUMM (3.8-5.5); Red Cell Distribution Width 14.4 % (9.3-17.3); White Blood Count 8.3 T/CUMM (4-12)
[2022-08-27] MEDS: LACTATED RINGERS 1,000 ML IV SCH ×2 (08:24→14:20)
[2022-08-27 08:50] LABS: Calcium 8.8 MG/DL (8.5-10.1); Osmolality,Calculated 284.1 MOS/KG (273-304); Potassium 4.7 MMOL/L (3.5-5.1)
[2022-08-27] MEDS: INSULIN REGULAR 100 UNIT/ML SUBCUT SCH ×4 (08:50→22:25)
[2022-08-27] MEDS: ASPIRIN EC 81 MG TABLET PO SCH (09:11)
[2022-08-27] MEDS: FINASTERIDE 5 MG TABLET PO SCH (09:11)
[2022-08-27] MEDS: PANTOPRAZOLE 40 MG TABLET PO SCH (09:11)
[2022-08-27] MEDS: CETIRIZINE 10 MG TABLET PO SCH (09:11)
[2022-08-27] MEDS: CHOLECALCIFEROL 1,000 UNIT TABLET PO SCH (09:11)
[2022-08-27] MEDS: APIXABAN 2.5 MG TABLET PO SCH ×2 (09:11→22:23)
[2022-08-27] MEDS: ENOXAPARIN 40 MG/0.4 ML SYRINGE SUBCUT SCH (09:11)
[2022-08-27] MEDS: METOPROLOL SUCCINATE XL 25 MG TABLET PO SCH (09:12)
[2022-08-27] MEDS ORDERED: ALBUTEROL/IPRATROPIUM 3 ML NEB RESP TX PRN (11:28)
[2022-08-27] MEDS: NON-FORMULARY MEDICATION (Fluticasone-Umeclidin-Vilanter [Trelegy Ellipta] 100-62.5-25 mcg INH SCH (12:28)
[2022-08-27] MEDS: TAMSULOSIN 0.4 MG CAPSULE PO SCH (22:23)
[2022-08-27] MEDS: CITALOPRAM 20 MG TABLET PO SCH (22:24)
[2022-08-27] MEDS: SIMVASTATIN 40 MG TABLET PO SCH (22:24)
[2022-08-27] MEDS: INSULIN GLARGINE 100 UNIT/ML SUBCUT SCH (22:25)
[2022-08-28] MEDS: methylPREDNISolone SOD SUC 40 MG/1 ML VIAL IV SCH ×3 (00:50→17:59)
[2022-08-28] MEDS: LACTATED RINGERS 1,000 ML IV SCH ×2 (01:00→14:03)
[2022-08-28] MEDS: PIPERACILLIN/TAZOBACTAM 3,375 MG in SODIUM CHLORIDE 0.9% 100 ML IV SCH ×3 (01:06→16:34)
[2022-08-28 05:58] LABS: Hematocrit 32.9 VOL% (42.0-52.0); Hemoglobin 10.4 GM/DL (14.0-18.0); Immature Granulocytes Absolute 0.07 #; Lymphocytes # 0.5 10*3/uL (1.4-4.0); Lymphocytes % 7.2 % (21.2-54.2); Mean Corpuscular HGB Conc 31.6 GM/DL (32-36); Mean Corpuscular Volume 103.5 FL (87-102); Mean Platelet Volume 9.7 FL (9.6-12.0); Monocytes # 0.4 10*3/uL (0.11-0.8); Monocytes % 5.2 % (1.7-12.7); Neutrophils % 86.6 % (38.7-73.9); Platelet Count 181 T/CUMM (130-400); Red Blood Count 3.18 MC/CUMM (3.8-5.5); Red Cell Distribution Width 14.1 % (9.3-17.3); White Blood Count 6.7 T/CUMM (4-12)
[2022-08-28 06:20] LABS: Calcium 8.7 MG/DL (8.5-10.1); Osmolality,Calculated 285.1 MOS/KG (273-304); Potassium 4.5 MMOL/L (3.5-5.1)
[2022-08-28] MEDS: ALBUTEROL/IPRATROPIUM 3 ML NEB RESP TX SCH ×3 (07:34→18:52)
[2022-08-28] MEDS: CHOLECALCIFEROL 1,000 UNIT TABLET PO SCH (09:08)
[2022-08-28] MEDS: CETIRIZINE 10 MG TABLET PO SCH (09:08)
[2022-08-28] MEDS: FINASTERIDE 5 MG TABLET PO SCH (09:08)
[2022-08-28] MEDS: APIXABAN 2.5 MG TABLET PO SCH ×2 (09:08→20:47)
[2022-08-28] MEDS: ENOXAPARIN 40 MG/0.4 ML SYRINGE SUBCUT SCH (09:08)
[2022-08-28] MEDS: ASPIRIN EC 81 MG TABLET PO SCH (09:08)
[2022-08-28] MEDS: METOPROLOL SUCCINATE XL 25 MG TABLET PO SCH (09:08)
[2022-08-28] MEDS: PANTOPRAZOLE 40 MG TABLET PO SCH (09:08)
[2022-08-28] MEDS: INSULIN REGULAR 100 UNIT/ML SUBCUT SCH ×4 (09:09→20:49)
[2022-08-28] MEDS: NON-FORMULARY MEDICATION (Fluticasone-Umeclidin-Vilanter [Trelegy Ellipta] 100-62.5-25 mcg INH SCH (09:18)
[2022-08-28] MEDS ORDERED: INSULIN GLARGINE 100 UNIT/ML SUBCUT ONE (11:00)
[2022-08-28] MEDS: ACETAMINOPHEN 325 MG TABLET PO PRN (18:55)
[2022-08-28] MEDS ORDERED: BISACODYL 10 MG SUPP RECTAL ONE (19:49)
[2022-08-28] MEDS: MAGNESIUM HYDROXIDE SUSP 30 ML UDCUP PO PRN (20:47)
[2022-08-28] MEDS: TAMSULOSIN 0.4 MG CAPSULE PO SCH (20:48)
[2022-08-28] MEDS: CITALOPRAM 20 MG TABLET PO SCH (20:48)
[2022-08-28] MEDS: SIMVASTATIN 40 MG TABLET PO SCH (20:48)
[2022-08-28] MEDS: INSULIN GLARGINE 100 UNIT/ML SUBCUT SCH (20:49)
[2022-08-29] MEDS: ALBUTEROL/IPRATROPIUM 3 ML NEB RESP TX SCH ×4 (00:07→19:25)
[2022-08-29] MEDS: PIPERACILLIN/TAZOBACTAM 3,375 MG in SODIUM CHLORIDE 0.9% 100 ML IV SCH ×2 (01:07→10:09)
[2022-08-29] MEDS: methylPREDNISolone SOD SUC 40 MG/1 ML VIAL IV SCH ×3 (01:07→18:39)
[2022-08-29] MEDS: LACTATED RINGERS 1,000 ML IV SCH ×3 (05:12→21:14)
[2022-08-29] MEDS: ENOXAPARIN 40 MG/0.4 ML SYRINGE SUBCUT SCH (10:09)
[2022-08-29] MEDS: ASPIRIN EC 81 MG TABLET PO SCH (10:10)
[2022-08-29] MEDS: INSULIN REGULAR 100 UNIT/ML SUBCUT SCH ×4 (10:10→21:13)
[2022-08-29] MEDS: APIXABAN 2.5 MG TABLET PO SCH ×2 (10:11→21:11)
[2022-08-29] MEDS: FINASTERIDE 5 MG TABLET PO SCH (10:11)
[2022-08-29] MEDS: METOPROLOL SUCCINATE XL 25 MG TABLET PO SCH (10:11)
[2022-08-29] MEDS: PANTOPRAZOLE 40 MG TABLET PO SCH (10:11)
[2022-08-29] MEDS: CETIRIZINE 10 MG TABLET PO SCH (10:45)
[2022-08-29] MEDS: CHOLECALCIFEROL 1,000 UNIT TABLET PO SCH (11:15)
[2022-08-29] MEDS: NON-FORMULARY MEDICATION (Fluticasone-Umeclidin-Vilanter [Trelegy Ellipta] 100-62.5-25 mcg INH SCH (12:06)
[2022-08-29] MEDS: LEVOFLOXACIN 500 MG TABLET PO SCH (13:12)
[2022-08-29] MEDS: traMADol 50 MG TABLET PO PRN (13:12)
[2022-08-29] MEDS: TAMSULOSIN 0.4 MG CAPSULE PO SCH (21:11)
[2022-08-29] MEDS: CITALOPRAM 20 MG TABLET PO SCH (21:11)
[2022-08-29] MEDS: SIMVASTATIN 40 MG TABLET PO SCH (21:11)
[2022-08-29] MEDS: INSULIN GLARGINE 100 UNIT/ML SUBCUT SCH (21:13)
[2022-08-30] MEDS: ALBUTEROL/IPRATROPIUM 3 ML NEB RESP TX SCH ×4 (01:20→19:22)
[2022-08-30] MEDS: methylPREDNISolone SOD SUC 40 MG/1 ML VIAL IV SCH ×3 (01:50→21:50)
[2022-08-30 04:53] LABS: Basophils % 0.4 % (0.0-0.8); Hematocrit 34.4 VOL% (42.0-52.0); Hemoglobin 11.2 GM/DL (14.0-18.0); Immature Granulocytes % 2.8 %; Immature Granulocytes Absolute 0.15 #; Lymphocytes # 0.5 10*3/uL (1.4-4.0); Lymphocytes % 8.5 % (21.2-54.2); Mean Corpuscular HGB Conc 32.6 GM/DL (32-36); Mean Corpuscular Volume 100.6 FL (87-102); Mean Platelet Volume 9.4 FL (9.6-12.0); Monocytes # 0.4 10*3/uL (0.11-0.8); Monocytes % 6.8 % (1.7-12.7); Neutrophils % 81.5 % (38.7-73.9); Platelet Count 175 T/CUMM (130-400); Red Blood Count 3.42 MC/CUMM (3.8-5.5); Red Cell Distribution Width 13.6 % (9.3-17.3); White Blood Count 5.4 T/CUMM (4-12)
[2022-08-30 05:15] LABS: Calcium 8.5 MG/DL (8.5-10.1); Osmolality,Calculated 278.2 MOS/KG (273-304); Potassium 4.4 MMOL/L (3.5-5.1)
[2022-08-30] MEDS: ENOXAPARIN 40 MG/0.4 ML SYRINGE SUBCUT SCH (09:30)
[2022-08-30] MEDS: INSULIN REGULAR 100 UNIT/ML SUBCUT SCH ×4 (09:31→21:50)
[2022-08-30] MEDS: CHOLECALCIFEROL 1,000 UNIT TABLET PO SCH (09:31)
[2022-08-30] MEDS: METOPROLOL SUCCINATE XL 25 MG TABLET PO SCH (09:31)
[2022-08-30] MEDS: APIXABAN 2.5 MG TABLET PO SCH ×2 (09:31→21:47)
[2022-08-30] MEDS: CETIRIZINE 10 MG TABLET PO SCH (09:31)
[2022-08-30] MEDS: ASPIRIN EC 81 MG TABLET PO SCH (09:31)
[2022-08-30] MEDS: FINASTERIDE 5 MG TABLET PO SCH (09:31)
[2022-08-30] MEDS: LACTATED RINGERS 1,000 ML IV SCH ×2 (09:32→23:50)
[2022-08-30] MEDS: PANTOPRAZOLE 40 MG TABLET PO SCH (09:32)
[2022-08-30] MEDS: traMADol 50 MG TABLET PO PRN (09:32)
[2022-08-30] MEDS ORDERED: KETOROLAC 30 MG/1 ML VIAL IV ONE (11:00)
[2022-08-30] MEDS: NON-FORMULARY MEDICATION (Fluticasone-Umeclidin-Vilanter [Trelegy Ellipta] 100-62.5-25 mcg INH SCH (11:02)
[2022-08-30] MEDS: LEVOFLOXACIN 500 MG TABLET PO SCH (11:28)
[2022-08-30] MEDS: CITALOPRAM 20 MG TABLET PO SCH (21:47)
[2022-08-30] MEDS: SIMVASTATIN 40 MG TABLET PO SCH (21:47)
[2022-08-30] MEDS: TAMSULOSIN 0.4 MG CAPSULE PO SCH (21:47)
[2022-08-30] MEDS: INSULIN GLARGINE 100 UNIT/ML SUBCUT SCH (21:51)
[2022-08-31] MEDS: ALBUTEROL/IPRATROPIUM 3 ML NEB RESP TX SCH ×4 (00:22→19:30)
[2022-08-31] MEDS: INSULIN REGULAR 100 UNIT/ML SUBCUT SCH ×4 (09:42→21:43)
[2022-08-31] MEDS: ENOXAPARIN 40 MG/0.4 ML SYRINGE SUBCUT SCH (09:42)
[2022-08-31] MEDS: ASPIRIN EC 81 MG TABLET PO SCH (09:44)
[2022-08-31] MEDS: CETIRIZINE 10 MG TABLET PO SCH (09:44)
[2022-08-31] MEDS: LEVOFLOXACIN 500 MG TABLET PO SCH (09:44)
[2022-08-31] MEDS: CHOLECALCIFEROL 1,000 UNIT TABLET PO SCH (09:44)
[2022-08-31] MEDS: FINASTERIDE 5 MG TABLET PO SCH (09:44)
[2022-08-31] MEDS: APIXABAN 2.5 MG TABLET PO SCH ×2 (09:44→21:43)
[2022-08-31] MEDS: METOPROLOL SUCCINATE XL 25 MG TABLET PO SCH (09:44)
[2022-08-31] MEDS: PANTOPRAZOLE 40 MG TABLET PO SCH (09:44)
[2022-08-31] MEDS: methylPREDNISolone SOD SUC 40 MG/1 ML VIAL IV SCH ×2 (09:45→21:43)
[2022-08-31] MEDS: NON-FORMULARY MEDICATION (Fluticasone-Umeclidin-Vilanter [Trelegy Ellipta] 100-62.5-25 mcg INH SCH (09:46)
[2022-08-31] MEDS ORDERED: KETOROLAC 30 MG/1 ML VIAL IV PRN (09:57)
[2022-08-31] MEDS: LACTATED RINGERS 1,000 ML IV SCH (13:13)
[2022-08-31] MEDS: traMADol 50 MG TABLET PO PRN ×2 (13:18→21:43)
[2022-08-31] MEDS: INSULIN GLARGINE 100 UNIT/ML SUBCUT SCH (21:42)
[2022-08-31] MEDS: TAMSULOSIN 0.4 MG CAPSULE PO SCH (21:43)
[2022-08-31] MEDS: CITALOPRAM 20 MG TABLET PO SCH (21:43)
[2022-08-31] MEDS: SIMVASTATIN 40 MG TABLET PO SCH (21:43)
[2022-09-01] MEDS: ALBUTEROL/IPRATROPIUM 3 ML NEB RESP TX SCH ×4 (00:25→18:59)
[2022-09-01] MEDS: LACTATED RINGERS 1,000 ML IV SCH ×2 (02:10→13:21)
[2022-09-01 06:43] LABS: Basophils % 0.3 % (0.0-0.8); Hematocrit 38.4 VOL% (42.0-52.0); Hemoglobin 12.5 GM/DL (14.0-18.0); Immature Granulocytes % 4.7 %; Immature Granulocytes Absolute 0.32 #; Lymphocytes # 0.7 10*3/uL (1.4-4.0); Lymphocytes % 10.4 % (21.2-54.2); Mean Corpuscular HGB Conc 32.6 GM/DL (32-36); Mean Corpuscular Volume 100.5 FL (87-102); Mean Platelet Volume 9.7 FL (9.6-12.0); Monocytes # 0.5 10*3/uL (0.11-0.8); Monocytes % 6.7 % (1.7-12.7); Neutrophils % 77.9 % (38.7-73.9); Platelet Count 208 T/CUMM (130-400); Red Blood Count 3.82 MC/CUMM (3.8-5.5); Red Cell Distribution Width 13.9 % (9.3-17.3); White Blood Count 6.8 T/CUMM (4-12)
[2022-09-01 07:11] LABS: Calcium 8.7 MG/DL (8.5-10.1); Osmolality,Calculated 275.5 MOS/KG (273-304); Potassium 4.6 MMOL/L (3.5-5.1)
[2022-09-01] MEDS: INSULIN REGULAR 100 UNIT/ML SUBCUT SCH ×4 (10:18→21:17)
[2022-09-01] MEDS: APIXABAN 2.5 MG TABLET PO SCH ×2 (10:18→21:18)
[2022-09-01] MEDS: PANTOPRAZOLE 40 MG TABLET PO SCH (10:19)
[2022-09-01] MEDS: CETIRIZINE 10 MG TABLET PO SCH (10:19)
[2022-09-01] MEDS: LEVOFLOXACIN 500 MG TABLET PO SCH (10:19)
[2022-09-01] MEDS: ASPIRIN EC 81 MG TABLET PO SCH (10:19)
[2022-09-01] MEDS: CHOLECALCIFEROL 1,000 UNIT TABLET PO SCH (10:19)
[2022-09-01] MEDS: FINASTERIDE 5 MG TABLET PO SCH (10:19)
[2022-09-01] MEDS: METOPROLOL SUCCINATE XL 25 MG TABLET PO SCH (10:19)
[2022-09-01] MEDS: ENOXAPARIN 40 MG/0.4 ML SYRINGE SUBCUT SCH (10:20)
[2022-09-01] MEDS: methylPREDNISolone SOD SUC 40 MG/1 ML VIAL IV SCH ×2 (10:20→21:18)
[2022-09-01] MEDS: NON-FORMULARY MEDICATION (Fluticasone-Umeclidin-Vilanter [Trelegy Ellipta] 100-62.5-25 mcg INH SCH (10:20)
[2022-09-01] MEDS ORDERED: amLODIPine 5 MG TABLET PO ONE (12:15)
[2022-09-01] MEDS: traMADol 50 MG TABLET PO PRN (21:18)
[2022-09-01] MEDS: SIMVASTATIN 40 MG TABLET PO SCH (21:18)
[2022-09-01] MEDS: CITALOPRAM 20 MG TABLET PO SCH (21:18)
[2022-09-01] MEDS: TAMSULOSIN 0.4 MG CAPSULE PO SCH (21:18)
[2022-09-01] MEDS: INSULIN GLARGINE 100 UNIT/ML SUBCUT SCH (21:18)
[2022-09-02] MEDS: ALBUTEROL/IPRATROPIUM 3 ML NEB RESP TX SCH ×4 (00:42→19:45)
[2022-09-02] MEDS: LACTATED RINGERS 1,000 ML IV SCH ×3 (06:04→23:00)
[2022-09-02 06:18] LABS: Basophils # 0.1 10*3/uL (0.0-0.2); Basophils % 0.5 % (0.0-0.8); Hematocrit 38.7 VOL% (42.0-52.0); Hemoglobin 12.8 GM/DL (14.0-18.0); Immature Granulocytes % 5.1 %; Immature Granulocytes Absolute 0.47 #; Lymphocytes # 0.8 10*3/uL (1.4-4.0); Lymphocytes % 8.8 % (21.2-54.2); Mean Corpuscular HGB Conc 33.1 GM/DL (32-36); Mean Corpuscular Volume 99.7 FL (87-102); Mean Platelet Volume 9.5 FL (9.6-12.0); Monocytes # 0.6 10*3/uL (0.11-0.8); Neutrophils % 79.6 % (38.7-73.9); Platelet Count 215 T/CUMM (130-400); Red Blood Count 3.88 MC/CUMM (3.8-5.5); Red Cell Distribution Width 13.9 % (9.3-17.3); White Blood Count 9.2 T/CUMM (4-12)
[2022-09-02 06:36] LABS: Calcium 8.5 MG/DL (8.5-10.1); Osmolality,Calculated 275.8 MOS/KG (273-304); Potassium 4.7 MMOL/L (3.5-5.1)
[2022-09-02 06:44] LABS: Lymphocytes 8 % (20-55); Platelet Estimate Adequate; Total Cells Counted 100
[2022-09-02] MEDS: NON-FORMULARY MEDICATION (Fluticasone-Umeclidin-Vilanter [Trelegy Ellipta] 100-62.5-25 mcg INH SCH (09:00)
[2022-09-02] MEDS: ASPIRIN EC 81 MG TABLET PO SCH (09:00)
[2022-09-02] MEDS: APIXABAN 2.5 MG TABLET PO SCH (09:00)
[2022-09-02] MEDS: ENOXAPARIN 40 MG/0.4 ML SYRINGE SUBCUT SCH (09:00)
[2022-09-02] MEDS: CHOLECALCIFEROL 1,000 UNIT TABLET PO SCH (10:01)
[2022-09-02] MEDS: METOPROLOL SUCCINATE XL 25 MG TABLET PO SCH (10:01)
[2022-09-02] MEDS: LEVOFLOXACIN 500 MG TABLET PO SCH (10:01)
[2022-09-02] MEDS: FINASTERIDE 5 MG TABLET PO SCH (10:01)
[2022-09-02] MEDS: CETIRIZINE 10 MG TABLET PO SCH (10:01)
[2022-09-02] MEDS: PANTOPRAZOLE 40 MG TABLET PO SCH (10:01)
[2022-09-02] MEDS: amLODIPine 5 MG TABLET PO SCH (10:01)
[2022-09-02] MEDS: INSULIN REGULAR 100 UNIT/ML SUBCUT SCH ×4 (10:02→21:27)
[2022-09-02] MEDS: methylPREDNISolone SOD SUC 40 MG/1 ML VIAL IV SCH ×2 (10:02→21:26)
[2022-09-02] MEDS ORDERED: BISACODYL 10 MG SUPP RECTAL ONE (12:00)
[2022-09-02] MEDS: traMADol 50 MG TABLET PO PRN ×2 (15:18→21:27)
[2022-09-02] MEDS ORDERED: INSULIN GLARGINE 100 UNIT/ML SUBCUT SCH (21:00)
[2022-09-02] MEDS: SIMVASTATIN 40 MG TABLET PO SCH (21:27)
[2022-09-02] MEDS: CITALOPRAM 20 MG TABLET PO SCH (21:27)
[2022-09-02] MEDS: TAMSULOSIN 0.4 MG CAPSULE PO SCH (21:27)
[2022-09-03] MEDS: ALBUTEROL/IPRATROPIUM 3 ML NEB RESP TX SCH ×4 (01:20→19:10)
[2022-09-03 05:42] LABS: Basophils % 0.5 % (0.0-0.8); Hematocrit 37.7 VOL% (42.0-52.0); Hemoglobin 12.4 GM/DL (14.0-18.0); Immature Granulocytes % 6.3 %; Immature Granulocytes Absolute 0.47 #; Lymphocytes # 0.6 10*3/uL (1.4-4.0); Lymphocytes % 8.1 % (21.2-54.2); Mean Corpuscular HGB Conc 32.9 GM/DL (32-36); Mean Corpuscular Volume 98.4 FL (87-102); Mean Platelet Volume 9.6 FL (9.6-12.0); Monocytes # 0.4 10*3/uL (0.11-0.8); Monocytes % 4.7 % (1.7-12.7); Neutrophils % 80.4 % (38.7-73.9); Platelet Count 197 T/CUMM (130-400); Red Blood Count 3.83 MC/CUMM (3.8-5.5); Red Cell Distribution Width 13.9 % (9.3-17.3); White Blood Count 7.5 T/CUMM (4-12)
[2022-09-03 06:00] LABS: Calcium 8.6 MG/DL (8.5-10.1); Osmolality,Calculated 277.5 MOS/KG (273-304); Potassium 4.5 MMOL/L (3.5-5.1)
[2022-09-03 06:07] LABS: Lymphocytes 8 % (20-55); Platelet Estimate Adequate; Total Cells Counted 100
[2022-09-03] MEDS: traMADol 50 MG TABLET PO PRN (08:54)
[2022-09-03] MEDS: PANTOPRAZOLE 40 MG TABLET PO SCH (08:55)
[2022-09-03] MEDS: METOPROLOL SUCCINATE XL 25 MG TABLET PO SCH (08:55)
[2022-09-03] MEDS: LEVOFLOXACIN 500 MG TABLET PO SCH (08:56)
[2022-09-03] MEDS: amLODIPine 5 MG TABLET PO SCH (08:56)
[2022-09-03] MEDS: FINASTERIDE 5 MG TABLET PO SCH (08:56)
[2022-09-03] MEDS: CETIRIZINE 10 MG TABLET PO SCH (08:57)
[2022-09-03] MEDS: CHOLECALCIFEROL 1,000 UNIT TABLET PO SCH (08:57)
[2022-09-03] MEDS: INSULIN REGULAR 100 UNIT/ML SUBCUT SCH ×4 (08:58→21:25)
[2022-09-03] MEDS: methylPREDNISolone SOD SUC 40 MG/1 ML VIAL IV SCH ×2 (08:59→21:25)
[2022-09-03] MEDS: NON-FORMULARY MEDICATION (Fluticasone-Umeclidin-Vilanter [Trelegy Ellipta] 100-62.5-25 mcg INH SCH (09:02)
[2022-09-03] MEDS: LACTATED RINGERS 1,000 ML IV SCH (10:12)
[2022-09-03] MEDS: CITALOPRAM 20 MG TABLET PO SCH (21:25)
[2022-09-03] MEDS: TAMSULOSIN 0.4 MG CAPSULE PO SCH (21:25)
[2022-09-03] MEDS: SIMVASTATIN 40 MG TABLET PO SCH (21:25)
[2022-09-03] MEDS: INSULIN GLARGINE 100 UNIT/ML SUBCUT SCH (21:25)
[2022-09-04] MEDS: ALBUTEROL/IPRATROPIUM 3 ML NEB RESP TX SCH ×4 (00:50→19:44)
[2022-09-04 05:24] LABS: Basophils % 0.3 % (0.0-0.8); Hemoglobin 12.5 GM/DL (14.0-18.0); Immature Granulocytes % 4.8 %; Immature Granulocytes Absolute 0.46 #; Lymphocytes # 0.6 10*3/uL (1.4-4.0); Lymphocytes % 6.4 % (21.2-54.2); Mean Corpuscular HGB Conc 32.9 GM/DL (32-36); Mean Corpuscular Volume 99.2 FL (87-102); Mean Platelet Volume 9.7 FL (9.6-12.0); Monocytes # 0.5 10*3/uL (0.11-0.8); Monocytes % 5.2 % (1.7-12.7); Neutrophils % 83.3 % (38.7-73.9); Platelet Count 201 T/CUMM (130-400); Red Blood Count 3.83 MC/CUMM (3.8-5.5); Red Cell Distribution Width 13.9 % (9.3-17.3); White Blood Count 9.7 T/CUMM (4-12)
[2022-09-04 05:47] LABS: Calcium 8.3 MG/DL (8.5-10.1); Osmolality,Calculated 272.9 MOS/KG (273-304); Potassium 4.5 MMOL/L (3.5-5.1)
[2022-09-04] MEDS: FINASTERIDE 5 MG TABLET PO SCH (09:24)
[2022-09-04] MEDS: CHOLECALCIFEROL 1,000 UNIT TABLET PO SCH (09:24)
[2022-09-04] MEDS: CETIRIZINE 10 MG TABLET PO SCH (09:24)
[2022-09-04] MEDS: INSULIN REGULAR 100 UNIT/ML SUBCUT SCH ×4 (09:24→21:22)
[2022-09-04] MEDS: methylPREDNISolone SOD SUC 40 MG/1 ML VIAL IV SCH ×2 (09:25→21:23)
[2022-09-04] MEDS: traMADol 50 MG TABLET PO PRN ×2 (09:25→21:22)
[2022-09-04] MEDS: LEVOFLOXACIN 500 MG TABLET PO SCH (09:25)
[2022-09-04] MEDS: amLODIPine 5 MG TABLET PO SCH (09:25)
[2022-09-04] MEDS: PANTOPRAZOLE 40 MG TABLET PO SCH (09:25)
[2022-09-04] MEDS: METOPROLOL SUCCINATE XL 25 MG TABLET PO SCH (09:25)
[2022-09-04] MEDS: NON-FORMULARY MEDICATION (Fluticasone-Umeclidin-Vilanter [Trelegy Ellipta] 100-62.5-25 mcg INH SCH (10:03)
[2022-09-04] MEDS: SODIUM CHLORIDE 0.9% 1,000 ML IV SCH (12:16)
[2022-09-04] MEDS: LACTULOSE 20 GM/30 ML UDCUP PO PRN (16:04)
[2022-09-04] MEDS: SIMVASTATIN 40 MG TABLET PO SCH (21:22)
[2022-09-04] MEDS: MAGNESIUM HYDROXIDE SUSP 30 ML UDCUP PO PRN (21:23)
[2022-09-04] MEDS: INSULIN GLARGINE 100 UNIT/ML SUBCUT SCH (21:23)
[2022-09-04] MEDS: TAMSULOSIN 0.4 MG CAPSULE PO SCH (21:23)
[2022-09-04] MEDS: CITALOPRAM 20 MG TABLET PO SCH (21:24)
[2022-09-05] MEDS: SODIUM CHLORIDE 0.9% 1,000 ML IV SCH ×3 (00:14→14:12)
[2022-09-05] MEDS: ALBUTEROL/IPRATROPIUM 3 ML NEB RESP TX SCH ×4 (00:35→19:20)
[2022-09-05 05:42] LABS: Basophils % 0.4 % (0.0-0.8); Hematocrit 38.2 VOL% (42.0-52.0); Hemoglobin 12.3 GM/DL (14.0-18.0); Immature Granulocytes % 3.2 %; Immature Granulocytes Absolute 0.27 #; Lymphocytes # 0.5 10*3/uL (1.4-4.0); Lymphocytes % 5.8 % (21.2-54.2); Mean Corpuscular HGB Conc 32.2 GM/DL (32-36); Mean Corpuscular Volume 100.5 FL (87-102); Mean Platelet Volume 9.6 FL (9.6-12.0); Monocytes # 0.4 10*3/uL (0.11-0.8); Monocytes % 4.8 % (1.7-12.7); Neutrophils % 85.8 % (38.7-73.9); Platelet Count 185 T/CUMM (130-400); Red Cell Distribution Width 14.2 % (9.3-17.3); White Blood Count 8.4 T/CUMM (4-12)
[2022-09-05 05:56] LABS: Calcium 7.9 MG/DL (8.5-10.1); Osmolality,Calculated 277.5 MOS/KG (273-304); Potassium 4.5 MMOL/L (3.5-5.1)
[2022-09-05] MEDS: FINASTERIDE 5 MG TABLET PO SCH (08:43)
[2022-09-05] MEDS: METOPROLOL SUCCINATE XL 25 MG TABLET PO SCH (08:43)
[2022-09-05] MEDS: CETIRIZINE 10 MG TABLET PO SCH (08:43)
[2022-09-05] MEDS: CHOLECALCIFEROL 1,000 UNIT TABLET PO SCH (08:44)
[2022-09-05] MEDS: INSULIN REGULAR 100 UNIT/ML SUBCUT SCH ×4 (08:44→21:22)
[2022-09-05] MEDS: LEVOFLOXACIN 500 MG TABLET PO SCH (08:44)
[2022-09-05] MEDS: PANTOPRAZOLE 40 MG TABLET PO SCH (08:44)
[2022-09-05] MEDS: amLODIPine 5 MG TABLET PO SCH (08:44)
[2022-09-05] MEDS: NON-FORMULARY MEDICATION (Fluticasone-Umeclidin-Vilanter [Trelegy Ellipta] 100-62.5-25 mcg INH SCH (08:45)
[2022-09-05] MEDS: methylPREDNISolone SOD SUC 40 MG/1 ML VIAL IV SCH ×2 (08:45→21:21)
[2022-09-05] MEDS: LACTULOSE 20 GM/30 ML UDCUP PO PRN (13:13)
[2022-09-05] MEDS: MAGNESIUM HYDROXIDE SUSP 30 ML UDCUP PO PRN (13:13)
[2022-09-05] MEDS ORDERED: SODIUM PHOSPHATE ENEMA 133 ML BOTTLE RECTAL ONE (15:00)
[2022-09-05] MEDS: SIMETHICONE CHEW 125 MG TABLET PO SCH ×2 (17:04→21:52)
[2022-09-05] MEDS: traMADol 50 MG TABLET PO PRN (17:07)
[2022-09-05] MEDS: SIMVASTATIN 40 MG TABLET PO SCH (21:20)
[2022-09-05] MEDS: APIXABAN 2.5 MG TABLET PO SCH (21:20)
[2022-09-05] MEDS: TAMSULOSIN 0.4 MG CAPSULE PO SCH (21:20)
[2022-09-05] MEDS: CITALOPRAM 20 MG TABLET PO SCH (21:20)
[2022-09-05] MEDS: INSULIN GLARGINE 100 UNIT/ML SUBCUT SCH (21:22)
[2022-09-06] MEDS: ALBUTEROL/IPRATROPIUM 3 ML NEB RESP TX SCH ×5 (00:46→23:33)
[2022-09-06] MEDS: SODIUM CHLORIDE 0.9% 1,000 ML IV SCH ×2 (05:24→17:19)
[2022-09-06] MEDS: INSULIN REGULAR 100 UNIT/ML SUBCUT SCH ×4 (10:42→20:57)
[2022-09-06] MEDS: ASPIRIN EC 81 MG TABLET PO SCH (10:44)
[2022-09-06] MEDS: APIXABAN 2.5 MG TABLET PO SCH ×2 (10:45→20:56)
[2022-09-06] MEDS: CHOLECALCIFEROL 1,000 UNIT TABLET PO SCH (10:45)
[2022-09-06] MEDS: amLODIPine 5 MG TABLET PO SCH (10:45)
[2022-09-06] MEDS: CETIRIZINE 10 MG TABLET PO SCH (10:45)
[2022-09-06] MEDS: METOPROLOL SUCCINATE XL 25 MG TABLET PO SCH (10:45)
[2022-09-06] MEDS: SIMETHICONE CHEW 125 MG TABLET PO SCH ×4 (10:45→20:56)
[2022-09-06] MEDS: methylPREDNISolone SOD SUC 40 MG/1 ML VIAL IV SCH ×2 (10:45→20:57)
[2022-09-06] MEDS: FINASTERIDE 5 MG TABLET PO SCH (10:45)
[2022-09-06] MEDS: NON-FORMULARY MEDICATION (Fluticasone-Umeclidin-Vilanter [Trelegy Ellipta] 100-62.5-25 mcg INH SCH (10:45)
[2022-09-06] MEDS: PANTOPRAZOLE 40 MG TABLET PO SCH (10:45)
[2022-09-06] MEDS: ACETAMINOPHEN 325 MG TABLET PO PRN ×2 (10:46→20:56)
[2022-09-06] MEDS: LIDOCAINE 5% PATCH TRANSDERM SCH (15:07)
[2022-09-06] MEDS ORDERED: traMADol 50 MG TABLET PO PRN (15:40)
[2022-09-06] MEDS: diphenhydrAMINE CAP 25 MG CAPSULE PO PRN (20:56)
[2022-09-06] MEDS: SIMVASTATIN 40 MG TABLET PO SCH (20:56)
[2022-09-06] MEDS: TAMSULOSIN 0.4 MG CAPSULE PO SCH (20:56)
[2022-09-06] MEDS: CITALOPRAM 20 MG TABLET PO SCH (20:56)
[2022-09-06] MEDS: INSULIN GLARGINE 100 UNIT/ML SUBCUT SCH (20:58)
[2022-09-07 04:49] LABS: Basophils % 0.2 % (0.0-0.8); Hematocrit 38.9 VOL% (42.0-52.0); Hemoglobin 12.8 GM/DL (14.0-18.0); Immature Granulocytes % 1.9 %; Immature Granulocytes Absolute 0.19 #; Lymphocytes # 0.5 10*3/uL (1.4-4.0); Lymphocytes % 5.5 % (21.2-54.2); Mean Corpuscular HGB Conc 32.9 GM/DL (32-36); Mean Platelet Volume 9.7 FL (9.6-12.0); Monocytes # 0.5 10*3/uL (0.11-0.8); Monocytes % 4.9 % (1.7-12.7); Neutrophils % 87.5 % (38.7-73.9); Platelet Count 183 T/CUMM (130-400); Red Blood Count 3.89 MC/CUMM (3.8-5.5); White Blood Count 9.8 T/CUMM (4-12)
[2022-09-07 05:04] LABS: Calcium 8.6 MG/DL (8.5-10.1); Osmolality,Calculated 270.7 MOS/KG (273-304); Potassium 4.6 MMOL/L (3.5-5.1)
[2022-09-07] MEDS ORDERED: IPRATROPIUM 500 MCG/2.5 ML NEB RESP TX ONE ×5 (05:25→23:53)
[2022-09-07] MEDS ORDERED: ALBUTEROL 2.5 MG/3 ML NEB RESP TX ONE ×5 (05:25→23:53)
[2022-09-07] MEDS: SODIUM CHLORIDE 0.9% 1,000 ML IV SCH ×2 (06:43→20:14)
[2022-09-07] MEDS: LEVALBUTEROL 1.25 MG/3 ML NEB RESP TX PRN ×2 (08:04→14:02)
[2022-09-07] MEDS: ALBUTEROL/IPRATROPIUM 3 ML NEB RESP TX SCH ×4 (08:04→19:19)
[2022-09-07] MEDS: CHOLECALCIFEROL 1,000 UNIT TABLET PO SCH (09:43)
[2022-09-07] MEDS: LACTULOSE 20 GM/30 ML UDCUP PO PRN (09:43)
[2022-09-07] MEDS: METOPROLOL SUCCINATE XL 25 MG TABLET PO SCH (09:44)
[2022-09-07] MEDS: amLODIPine 5 MG TABLET PO SCH (09:44)
[2022-09-07] MEDS: ASPIRIN EC 81 MG TABLET PO SCH (09:44)
[2022-09-07] MEDS: PANTOPRAZOLE 40 MG TABLET PO SCH (09:45)
[2022-09-07] MEDS: CETIRIZINE 10 MG TABLET PO SCH (09:45)
[2022-09-07] MEDS: INSULIN REGULAR 100 UNIT/ML SUBCUT SCH ×4 (09:45→21:36)
[2022-09-07] MEDS: FINASTERIDE 5 MG TABLET PO SCH (09:45)
[2022-09-07] MEDS: APIXABAN 2.5 MG TABLET PO SCH ×2 (09:45→21:34)
[2022-09-07] MEDS: LIDOCAINE 5% PATCH TRANSDERM SCH (09:46)
[2022-09-07] MEDS: NON-FORMULARY MEDICATION (Fluticasone-Umeclidin-Vilanter [Trelegy Ellipta] 100-62.5-25 mcg INH SCH (09:46)
[2022-09-07] MEDS: methylPREDNISolone SOD SUC 40 MG/1 ML VIAL IV SCH ×2 (09:47→21:35)
[2022-09-07] MEDS: SIMETHICONE CHEW 125 MG TABLET PO SCH ×4 (09:47→21:34)
[2022-09-07] MEDS: INSULIN GLARGINE 100 UNIT/ML SUBCUT SCH (21:34)
[2022-09-07] MEDS: TAMSULOSIN 0.4 MG CAPSULE PO SCH (21:35)
[2022-09-07] MEDS: CITALOPRAM 20 MG TABLET PO SCH (21:35)
[2022-09-07] MEDS: SIMVASTATIN 40 MG TABLET PO SCH (21:35)
[2022-09-08] MEDS: ALBUTEROL/IPRATROPIUM 3 ML NEB RESP TX SCH ×4 (00:36→19:20)
[2022-09-08 05:20] LABS: Calcium 8.3 MG/DL (8.5-10.1); Potassium 4.5 MMOL/L (3.5-5.1)
[2022-09-08 05:23] LABS: Osmolality,Calculated 267.7 MOS/KG (273-304)
[2022-09-08] MEDS ORDERED: IPRATROPIUM 500 MCG/2.5 ML NEB RESP TX ONE ×2 (07:27→10:57)
[2022-09-08] MEDS ORDERED: ALBUTEROL 2.5 MG/3 ML NEB RESP TX ONE ×2 (07:28→10:57)
[2022-09-08] MEDS: methylPREDNISolone SOD SUC 40 MG/1 ML VIAL IV SCH (09:21)
[2022-09-08] MEDS: APIXABAN 2.5 MG TABLET PO SCH ×2 (09:22→20:25)
[2022-09-08] MEDS: PANTOPRAZOLE 40 MG TABLET PO SCH (09:22)
[2022-09-08] MEDS: ASPIRIN EC 81 MG TABLET PO SCH (09:22)
[2022-09-08] MEDS: METOPROLOL SUCCINATE XL 25 MG TABLET PO SCH (09:22)
[2022-09-08] MEDS: SIMETHICONE CHEW 125 MG TABLET PO SCH ×4 (09:22→20:25)
[2022-09-08] MEDS: FINASTERIDE 5 MG TABLET PO SCH (09:22)
[2022-09-08] MEDS: amLODIPine 5 MG TABLET PO SCH (09:22)
[2022-09-08] MEDS: CETIRIZINE 10 MG TABLET PO SCH (09:22)
[2022-09-08] MEDS: INSULIN REGULAR 100 UNIT/ML SUBCUT SCH ×4 (09:23→20:26)
[2022-09-08] MEDS: CHOLECALCIFEROL 1,000 UNIT TABLET PO SCH (09:23)
[2022-09-08] MEDS: NON-FORMULARY MEDICATION (Fluticasone-Umeclidin-Vilanter [Trelegy Ellipta] 100-62.5-25 mcg INH SCH (09:24)
[2022-09-08] MEDS: LIDOCAINE 5% PATCH TRANSDERM SCH (09:24)
[2022-09-08] MEDS: SODIUM CHLORIDE 0.9% 1,000 ML IV SCH (09:36)
[2022-09-08] MEDS: predniSONE 20 MG TABLET PO SCH (20:25)
[2022-09-08] MEDS: CITALOPRAM 20 MG TABLET PO SCH (20:25)
[2022-09-08] MEDS: TAMSULOSIN 0.4 MG CAPSULE PO SCH (20:25)
[2022-09-08] MEDS: INSULIN GLARGINE 100 UNIT/ML SUBCUT SCH (20:26)
[2022-09-08] MEDS: SIMVASTATIN 40 MG TABLET PO SCH (20:26)
[2022-09-08] MEDS: diphenhydrAMINE CAP 25 MG CAPSULE PO PRN (21:17)
[2022-09-09] MEDS ORDERED: ZALEPLON 5 MG CAPSULE PO PRN (01:17)
[2022-09-09] MEDS: ALBUTEROL/IPRATROPIUM 3 ML NEB RESP TX SCH ×4 (01:34→20:42)
[2022-09-09 05:42] LABS: Albumin 3.1 G/DL (3.4-5.0); Bilirubin,Total 0.6 MG/DL (0.20-1.00); Calcium 8.2 MG/DL (8.5-10.1); Osmolality,Calculated 280.7 MOS/KG (273-304); Potassium 4.3 MMOL/L (3.5-5.1)
[2022-09-09] MEDS: NON-FORMULARY MEDICATION (Fluticasone-Umeclidin-Vilanter [Trelegy Ellipta] 100-62.5-25 mcg INH SCH (08:07)
[2022-09-09] MEDS: INSULIN REGULAR 100 UNIT/ML SUBCUT SCH ×4 (08:07→20:41)
[2022-09-09] MEDS: PANTOPRAZOLE 40 MG TABLET PO SCH (08:08)
[2022-09-09] MEDS: FINASTERIDE 5 MG TABLET PO SCH (08:08)
[2022-09-09] MEDS: amLODIPine 5 MG TABLET PO SCH (08:08)
[2022-09-09] MEDS: CHOLECALCIFEROL 1,000 UNIT TABLET PO SCH (08:08)
[2022-09-09] MEDS: ASPIRIN EC 81 MG TABLET PO SCH (08:08)
[2022-09-09] MEDS: CETIRIZINE 10 MG TABLET PO SCH (08:08)
[2022-09-09] MEDS: SIMETHICONE CHEW 125 MG TABLET PO SCH ×4 (08:08→20:38)
[2022-09-09] MEDS: METOPROLOL SUCCINATE XL 25 MG TABLET PO SCH (08:09)
[2022-09-09] MEDS: predniSONE 20 MG TABLET PO SCH ×2 (08:09→20:39)
[2022-09-09] MEDS: APIXABAN 2.5 MG TABLET PO SCH ×2 (08:09→20:39)
[2022-09-09] MEDS: LIDOCAINE 5% PATCH TRANSDERM SCH (08:09)
[2022-09-09] MEDS: SIMVASTATIN 40 MG TABLET PO SCH (20:39)
[2022-09-09] MEDS: CITALOPRAM 20 MG TABLET PO SCH (20:39)
[2022-09-09] MEDS: TAMSULOSIN 0.4 MG CAPSULE PO SCH (20:39)
[2022-09-09] MEDS: INSULIN GLARGINE 100 UNIT/ML SUBCUT SCH (20:41)
[2022-09-10] MEDS: ALBUTEROL/IPRATROPIUM 3 ML NEB RESP TX SCH ×3 (01:05→14:00)
[2022-09-10 05:40] LABS: Albumin 3.3 G/DL (3.4-5.0); Bilirubin,Total 0.8 MG/DL (0.20-1.00); Calcium 8.4 MG/DL (8.5-10.1); Osmolality,Calculated 268.5 MOS/KG (273-304); Potassium 4.3 MMOL/L (3.5-5.1); Total Protein 6.5 G/DL (6.4-8.2)
[2022-09-10] MEDS: INSULIN REGULAR 100 UNIT/ML SUBCUT SCH ×2 (09:34→12:39)
[2022-09-10] MEDS: CHOLECALCIFEROL 1,000 UNIT TABLET PO SCH (09:35)
[2022-09-10] MEDS: ASPIRIN EC 81 MG TABLET PO SCH (09:35)
[2022-09-10] MEDS: amLODIPine 5 MG TABLET PO SCH (09:35)
[2022-09-10] MEDS: LIDOCAINE 5% PATCH TRANSDERM SCH (09:35)
[2022-09-10] MEDS: SIMETHICONE CHEW 125 MG TABLET PO SCH ×2 (09:35→14:06)
[2022-09-10] MEDS: PANTOPRAZOLE 40 MG TABLET PO SCH (09:35)
[2022-09-10] MEDS: FINASTERIDE 5 MG TABLET PO SCH (09:35)
[2022-09-10] MEDS: CETIRIZINE 10 MG TABLET PO SCH (09:35)
[2022-09-10] MEDS: LACTULOSE 20 GM/30 ML UDCUP PO PRN (09:36)
[2022-09-10] MEDS: predniSONE 20 MG TABLET PO SCH (09:36)
[2022-09-10] MEDS: APIXABAN 2.5 MG TABLET PO SCH (09:36)
[2022-09-10] MEDS: METOPROLOL SUCCINATE XL 25 MG TABLET PO SCH (09:36)
[2022-09-10] MEDS: NON-FORMULARY MEDICATION (Fluticasone-Umeclidin-Vilanter [Trelegy Ellipta] 100-62.5-25 mcg INH SCH (09:36)
[2022-09-10] MEDS ORDERED: TUBERCULIN SKIN TEST 0.1 ML SYRINGE INTRADERM ONE (11:00)
[2022-09-10 11:49] VITALS: BP 133/79
== END 2022-09-10 15:09 | disposition swing bed (61) | DRG 190 ==
LOC: EDBD → EDUNIT# → N.5E 20:45 → N.ED 20:45 → SUATTDRO 23:26 → N.5E 08-26 00:48 → SUATTDRO 08-27 12:20
PROVIDERS: ADMIT Internal Medicine; ATTEND Internal Medicine